=== PATIENT | female | born 1940 | race Caucasian/White ===

== ENCOUNTER 2023-08-21 04:02 | Inpatient (IN) | payer MEDICARE ==
[2023-08-21] MEDS: HYDROcodone/APAP 7.5-325MG 1 EACH TAB PO ONE (05:20)
[2023-08-21 05:22] LABS: African American GFR (CKD) 52 (>60 ml/min/1.73 sqM); Anion Gap 8 mmol/L; Blood Urea Nitrogen 36 mg/dL (7-17); Calcium 9.9 mg/dL (8.4-10.2); Carbon Dioxide 20 mmol/L (22-30); Chloride 109 mmol/L (98-107); Glucose 169 mg/dL (74-99); Non-African American GFR(CKD) 45 (>60 ml/min/1.73 sqM); Sodium 137 mmol/L (137-145)
[2023-08-21 05:23] LABS: Basophils % (A) 0 %; Eosinophils # (A) 0.3 k/uL (0-0.7); Eosinophils % (A) 2 %; HCT 44.4 % (34.0-46.0); HGB 14.8 gm/dL (11.4-16.0); Lymphocytes # (A) 1.6 k/uL (1.0-4.8); Lymphocytes % (A) 11 %; MCH 32.7 pg (25.0-35.0); MCHC 33.4 g/dL (31.0-37.0); MCV 98.1 fL (80.0-100.0); Mean Platelet Volume 10.1; Monocytes # (A) 0.7 k/uL (0-1.0); Monocytes % (A) 5 %; Neutrophils # (A) 11.4 k/uL (1.3-7.7); Neutrophils % (A) 81 %; Platelet Count 226 k/uL (150-450); RBC 4.53 m/uL (3.80-5.40); RDW 13.1 % (11.5-15.5); WBC 14.1 k/uL (3.8-10.6)
[2023-08-21 06:01] LABS: Partial Thromboplastin Time 23.9 sec (22.0-30.0); Prothrombin Time 11.1 sec (10.0-12.5)
--- NOTE | 2023-08-21 06:38 | XR ---
EXAM: XR Left Tibia and Fibula, 2 Views CLINICAL HISTORY: ITS.REASON XR Reason: leg injury c/o left leg pain after hitting leg on unknown object - possibly while getting into car. Injury occurred around 01:00 this morning.Swelling and bruising on left lateral side of leg TECHNIQUE: Frontal and lateral views of the left tibia and fibula. COMPARISON: No relevant prior studies available. FINDINGS: Bones/joints: No acute fracture. No dislocation. Degenerative changes at the knee. Soft tissues: Approximately 12 x 4 cm ovoid opacity in the left lateral lower leg, calf level. IMPRESSION: 1. No evidence of acute fracture or dislocation. 2. Approximately 12 x 4 cm ovoid opacity in the left lateral lower leg, calf level. Possible hematoma.
[2023-08-21] MEDS ORDERED: ONDANSETRON 4 MG/2 ML VIAL IVP PRN (08:03)
[2023-08-21] MEDS ORDERED: NALOXONE 0.4 MG/ML 1 ML VIAL IV PRN (08:03)
[2023-08-21] MEDS: HYDROmorphone 0.5 MG/0.5 ML SYRINGE IVP PRN (08:17)
[2023-08-21] MEDS: SODIUM CHLORIDE 0.9% 1,000 ML IV SCH (08:25)
--- NOTE | 2023-08-21 08:31 | ED ---
Lower Extremity Injury HPI - General Chief Complaint: Extremity Injury, Lower Stated Complaint: left leg pain Time Seen by Provider: 08/21/23 04:32 Source: patient Mode of arrival: wheelchair Limitations: no limitations - History of Present Illness Initial Comments: This patient is an 83-year-old woman who is on Xarelto for atrial fibrillation and states that she had struck her left leg against car while she was getting into it. She states that this was in [place] where she lives. She proceeded to come to [facility] where her son lives. I when she got here she noticed she was having significant pain and when she checked her leg found there was large area of swelling in the lateral aspect of the pretibial area. The patient states that the pain is worse when she tries to bear weight or if she touches the swelling. She has intact sensation to the foot. She is able to move her toes. She denies any other injury. Complaint: leg injury -: hour(s) Injury: Leg: Left Type of Injury: blunt Place: street/outdoors Severity: moderate Improves With: immobilization Worsens With: weight bearing, movement, palpation Context: direct blow Associated Symptoms: swelling, able to partially bear weight - Related Data Home Medications Medication Instructions Recorded Confirmed Apixaban [Eliquis] 5 mg PO BID 08/21/23 08/21/23 Clotrimazole/Betameth Cream 1 applic TOPICAL BID PRN 08/21/23 08/21/23 [Lotrisone] Levothyroxine Sodium [Levoxyl] 100 mcg PO HS 08/21/23 08/21/23 Metoprolol Tartrate [Lopressor] 100 mg PO BID 08/21/23 08/21/23 Pravastatin Sodium [Pravachol] 40 mg PO HS 08/21/23 08/21/23 Spironolactone 25 mg PO DAILY PRN 08/21/23 08/21/23 dilTIAZem HCL [dilTIAZem HCL 24Hr 120 mg PO DAILY 08/21/23 08/21/23 ER (Xr)] lisinopriL [Zestril] 20 mg PO BID 08/21/23 08/21/23 Previous Rx's Medication Instructions Recorded Acetaminophen Tab [Tylenol] 650 mg PO Q6HR PRN tab 08/31/23 Docusate [Colace] 100 mg PO DAILY PRN cap 08/31/23 Famotidine [Pepcid] 20 mg PO DAILY tab 08/31/23 HYDROcodone/APAP 7.5-325MG [[place] 1 each PO Q4H PRN #10 tab 08/31/23 7.5-325] traMADol HCL 50 mg PO DAILY PRN #3 tab 08/31/23 Allergies Allergy/AdvReac Type Severity Reaction Status Date / Time amoxicillin Allergy Itching Verified 08/23/23 10:20 morphine Allergy Itching Verified 08/23/23 10:20 Review of Systems ROS Statement: Those systems with pertinent positive or pertinent negative responses have been documented in the HPI. ROS Other: All systems not noted in ROS Statement are negative. Constitutional: Denies: fever, chills, weakness Respiratory: Denies: cough, dyspnea Cardiovascular: Denies: chest pain, palpitations, edema Gastrointestinal: Denies: abdominal pain, vomiting, diarrhea Genitourinary: Denies: dysuria, hematuria Musculoskeletal: Denies: back pain Skin: Denies: rash Neurological: Reports: as per HPI, paresthesias. Denies: headache, weakness, numbness Hematological/Lymphatic: Reports: easy bleeding Past Medical History Past Medical History: Atrial Fibrillation, Hyperlipidemia, Hypertension, Thyroid Disorder History of Any Multi-Drug Resistant Organisms: None Reported Past Surgical History: Cholecystectomy, Joint Replacement Past Psychological History: No Psychological Hx Reported Smoking Status: Never smoker Past Alcohol Use History: None Reported Past Drug Use History: None Reported General Exam Limitations: no limitations General appearance: alert, in no apparent distress Head exam: Present: atraumatic, normocephalic Eye exam: Present: normal appearance. Absent: scleral icterus, conjunctival injection Neck exam: Present: normal inspection Respiratory exam: Present: normal lung sounds bilaterally. Absent: respiratory distress, wheezes, rales, rhonchi, stridor Cardiovascular Exam: Present: regular rate, normal rhythm, normal heart sounds. Absent: systolic murmur, diastolic murmur, rubs, gallop GI/Abdominal exam: Present: soft. Absent: distended, tenderness, guarding, rebound, rigid, mass Extremities exam: Present: full ROM, tenderness, normal capillary refill, calf tenderness, other (And has approximately 12 cm diameter area of hematoma lateral aspect of the left lower leg. There is marked tenderness. The patient does have movement of the toes. She has intact light touch.) Neurological exam: Present: alert. Absent: motor sensory deficit Skin exam: Present: warm, dry, intact, other (Mild chronic stasis changes bilateral lower legs) Course Vital Signs 08/21/23 08/21/23 08/21/23 04:03 07:08 09:12 Temperature 97.6 F 97.6 F Pulse Rate 89 112 H 79 Respiratory 18 20 18 Rate Blood Pressure 137/62 151/104 122/70 O2 Sat by Pulse 97 90 L 99 Oximetry 08/21/23 12:56 Temperature 98.0 F Pulse Rate 80 Respiratory 18 Rate Blood Pressure 155/77 O2 Sat by Pulse 96 Oximetry Medical Decision Making - Medical Decision Making Patient is an 83-year-old woman taking Xarelto who had blunt injury to the lateral aspect of left lower leg. She does have large hematoma. It has progressed somewhat since her arrival here. The patient not able to bear weight due to pain. We'll admit to have orthopedic consultation to ensure that the hematoma does not need to be drained to prevent developing compartment syndrome. The patient had x-ray of the left tib-fib area of the leg which I interpreted as negative for acute bony injury. Was pt. sent in by a medical professional or institution (, PA, [employer], urgent care, hospital, or penitentiary...) When possible be specific @ -[No] Did you speak to anyone other than the patient for history (EMS, parent, family, police, friend...)? What history was obtained from this source @ -[No] Did you review nursing and triage notes (agree or disagree)? Why? @ -[I reviewed and agree with nursing and triage notes] Were old charts reviewed (outside hosp., previous admission, EMS record, old EKG, old radiological studies, urgent care reports/EKG's, penitentiary records)? Report findings @ -[No old charts were reviewed] Differential Diagnosis (chest pain, altered mental status, abdominal pain women, abdominal pain men, vaginal bleeding, weakness, fever, dyspnea, syncope, headache, dizziness, GI bleed, back pain, seizure, CVA, palpatations, mental h ealth, musculoskeletal)? @ -[Differential Musculoskeletal Muscular strain, contusion, ligament sprain, fracture, arthritis, septic arthritis, bursitis, cellulitis, muscle spasm, nerve compression, DVT, arterial occlusion, herpes zoster, electrolyte abnormality, tumor.... This is not meant to be in all inclusive list EKG interpreted by me (3pts min.). @ -[As above] X-rays interpreted by me (1pt min.). @ -[I interpreted as above CT interpreted by me (1pt min.). @ -[None done] U/S interpreted by me (1pt. min.). @ -[None done] What testing was considered but not performed or refused? (CT, X-rays, U/S, labs)? Why? @ -[None] What meds were considered but not given or refused? Why? @ -[None] Did you discuss the management of the patient with other professionals (professionals i.e. , PA, [employer], lab, RT, psych nurse, social media assistant, oilseed meat presser, teacher, seismology technical officer, pillowcase folder)? Give summary @ -[The case was discussed with admitting physician and with the pre owned sales consultant and treatment recommendations are incorporated Was smoking cessation discussed for >3mins.? @ -[No] Was critical care preformed (if so, how long)? @ -[No] Were there social determinants of health that impacted care today? How? (Homelessness, low income, unemployed, alcoholism, drug addiction, transportation, low edu. Level, literacy, decrease access to med. care, fpc, rehab)? @ -[No] Was there de-escalation of care discussed even if they declined (Discuss DNR or withdrawal of care, Hospice)? DNR status @ -[No] What co-morbidities impacted this encounter? (DM, HTN, Smoking, COPD, CAD, Cancer, CVA, ARF, Chemo, Hep., AIDS, mental health diagnosis, sleep apnea, morbid obesity)? @ -[Atrial fibrillation with Xarelto use Was patient admitted / discharged? Hospital course, mention meds given and route, prescriptions, significant lab abnormalities, going to OR and other pertinent info. @ -[See above Undiagnosed new problem with uncertain prognosis? @ -[No] Drug Therapy requiring intensive monitoring for toxicity (Heparin, Nitro, Insulin, Cardizem)? @ -[No] Were any procedures done? @ -[No] Diagnosis/symptom? @ -[Left leg hematoma Possible compartment syndrome Acute, or Chronic, or Acute on Chronic? @ -[Acute Uncomplicated (without systemic symptoms) or Complicated (systemic symptoms)? @ -[Uncomplicated Side effects of treatment? @ -[No] Exacerbation, Progression, or Severe Exacerbation? @ -[No] Poses a threat to life or bodily function? How? (Chest pain, [place], [place], pneumonia, PE, COPD, DKA, ARF, appy, cholecystitis, CVA, Diverticulitis, Homicidal, Suicidal, threat to staff... and all critical care pts) @ -[Hematoma which advances to compartment syndrome represents threat to extremity function - Lab Data Result diagrams: 08/26/23 05:45 08/26/23 05:45 Lab Results 08/21/23 08/21/23 08/21/23 Range/Units 05:04 05:04 05:04 WBC 14.1 H (3.8-10.6) k/uL RBC 4.53 (3.80-5.40) m/uL Hgb 14.8 (11.4-16.0) gm/dL Hct 44.4 (34.0-46.0) % MCV 98.1 (80.0-100.0) fL MCH 32.7 (25.0-35.0) pg MCHC 33.4 (31.0-37.0) g/dL RDW 13.1 (11.5-15.5) % Plt Count 226 (150-450) k/uL MPV 10.1 Neutrophils % 81 % Lymphocytes % 11 % Monocytes % 5 % Eosinophils % 2 % Basophils % 0 % Neutrophils # 11.4 H (1.3-7.7) k/uL Lymphocytes # 1.6 (1.0-4.8) k/uL Monocytes # 0.7 (0-1.0) k/uL Eosinophils # 0.3 (0-0.7) k/uL Basophils # 0.0 (0-0.2) k/uL PT 11.1 (10.0-12.5) sec INR 1.0 (<1.2) APTT 23.9 (22.0-30.0) sec Sodium 137 (137-145) mmol/L Potassium 5.0 (3.5-5.1) mmol/L Chloride 109 H (98-107) mmol/L Carbon Dioxide 20 L (22-30) mmol/L Anion Gap 8 mmol/L BUN 36 H (7-17) mg/dL Creatinine 1.14 H (0.52-1.04) mg/dL Est GFR (CKD-EPI)AfAm 52 (>60 ml/min/1.73 sqM) Est GFR (CKD-EPI)NonAf 45 (>60 ml/min/1.73 sqM) Glucose 169 H (74-99) mg/dL Plasma Lactic Acid Stone (0.7-2.0) mmol/L Calcium 9.9 (8.4-10.2) mg/dL Magnesium (1.6-2.3) mg/dL Total Bilirubin (0.2-1.3) mg/dL AST (14-36) U/L ALT (4-34) U/L Alkaline Phosphatase (38-126) U/L Total Protein (6.3-8.2) g/dL Albumin (3.5-5.0) g/dL 08/21/23 08/22/23 08/22/23 Range/Units 05:04 07:13 07:13 WBC 11.1 H (3.8-10.6) k/uL RBC 3.42 L (3.80-5.40) m/uL Hgb 11.2 L D (11.4-16.0) gm/dL Hct 34.1 (34.0-46.0) % MCV 99.7 (80.0-100.0) fL MCH 32.8 (25.0-35.0) pg MCHC 32.9 (31.0-37.0) g/dL RDW 13.0 (11.5-15.5) % Plt Count 163 (150-450) k/uL MPV 9.3 Neutrophils % % Lymphocytes % % Monocytes % % Eosinophils % % Basophils % % Neutrophils # (1.3-7.7) k/uL Lymphocytes # (1.0-4.8) k/uL Monocytes # (0-1.0) k/uL Eosinophils # (0-0.7) k/uL Basophils # (0-0.2) k/uL PT (10.0-12.5) sec INR (<1.2) APTT (22.0-30.0) sec Sodium 136 L (137-145) mmol/L Potassium 4.4 (3.5-5.1) mmol/L Chloride 105 (98-107) mmol/L Carbon Dioxide 24 (22-30) mmol/L Anion Gap 7 mmol/L BUN 33 H (7-17) mg/dL Creatinine 1.03 (0.52-1.04) mg/dL Est GFR (CKD-EPI)AfAm 59 (>60 ml/min/1.73 sqM) Est GFR (CKD-EPI)NonAf 51 (>60 ml/min/1.73 sqM) Glucose 131 H (74-99) mg/dL Plasma Lactic Acid Stone 1.5 (0.7-2.0) mmol/L Calcium 9.0 (8.4-10.2) mg/dL Magnesium 1.5 L (1.6-2.3) mg/dL Total Bilirubin 1.1 (0.2-1.3) mg/dL AST 85 H (14-36) U/L ALT 91 H (4-34) U/L Alkaline Phosphatase 182 H (38-126) U/L Total Protein 5.3 L (6.3-8.2) g/dL Albumin 3.1 L (3.5-5.0) g/dL Disposition Clinical Impression: Hematoma of left lower leg, Intractable pain, Inability to walk Disposition: ADMITTED IP TO THIS [facility] Condition: Stable
[2023-08-21] MEDS: HYDROmorphone 1 MG/ML 1 ML SYRINGE IVP PRN (10:25)
[2023-08-21] MEDS: FAMOTIDINE 20 MG TAB PO SCH (10:25)
[2023-08-21] MEDS ORDERED: SPIRONOLACTONE 25 MG TAB PO PRN (13:26)
--- NOTE | 2023-08-21 13:27 | P.HPIM ---
History of Present Illness H&P Date: 08/21/23 History of Presenting Illness: Patient is a pleasant 83-year-old female with a past medical history of chronic atrial fibrillation on anticoagulation with Eliquis, hypertension, hyperlipidemia, and hypothyroidism. She presented to the emergency department with left lower extremity pain and swelling. Patient lives in [place] and is here in [place] for her son's . She reports upon getting into her [id number]'s car after her son's yesterday she bumped her leg on the door. Initially, patient reports it was sore but did not think much of it. She reports throughout the day and night the swelling and pain to her left lower extremity worsened. She denies any other pain or injuries and denies any other complaints at this time including headache, lightheadedness, dizziness, chest pain, palpitations, shortness of breath, or experiencing any numbness or focal weakness in her extremities. Patient does report difficulty bearing weight weight/ambulating on left lower extremity secondary to pain. She underwent full evaluation in the emergency department. Vital signs upon arrival show blood pressure 137/62, heart rate 89, respiratory rate 18, temp 97.6 F, and SpO2 of 97% on room air. Labs completed and reviewed. CBC showing mild leukocytosis with WBC count of 14.1 otherwise normal findings. Coagulation profile normal findings. BMP showing mild non-anion gap metabolic acidosis with chloride 109, bicarb 20, and anion gap of 8. Renal function slightly elevated with BUN of 36, creatinine 1.14, and GFR 45 unknown baseline as patient is from out of state and no previous labs are available for comparison. Lactic acid was 1.5. X-ray completed negative for acute fracture or dislocation revealing an approximately 12 x 4 cm ovoid opacity in the left lateral lower leg consistent with hematoma. Patient admitted under our services with consultation to orthopedic surgery team for evaluation. Review of systems: Pertinent positives and negatives as discussed in HPI, a complete review of systems was performed and all other systems are negative. Physical exam: Vital signs reviewed and stable. General: Nontoxic, no distress and appears stated age. Derm: Skin warm and dry, normal coloration for ethnicity. Head: Atraumatic, normocephalic and symmetric. Eyes: EOMs intact, no lid lag, and anicteric sclera Mouth: no lip lesions, mucus membranes moist Cardiovascular: Irregularly irregular with normal S1S2, no murmur, positive posterior tibial pulses bilaterally, and cap refill < 2 seconds. Lungs: Respirations even, regular, and unlabored on room air. Lungs CTA bilaterally, no rhonchi, no rales, no wheezing, and no accessory muscle usage. Abdominal: soft, nontender to palpation, no guarding, no appreciable organomegaly Ext: No gross muscle atrophy, no contractures. Movement and sensation intact. Patient with bilateral lower extremity edema and peripheral vascular discolor ation. Left lower extremity with large hematoma to lateral surface of lower leg approximately 12 cm in length with small opening/tear and skin with seepage of dark-colored venous blood. Neuro: Speech clear, face symmetrical and CN II-XII grossly intact with no noted focal neuro deficits Psych: Alert and oriented to person, place, time, and situation. Appropriate and pleasant affect. Assessment and Plan of Care: Large left lower extremity hematoma -Order placed for Tdap -Patient placed empirically on IV antibiotics with cefepime 2 g IVPB every 8 hours. -Consult placed orthopedic surgery team -Hold Eliquis pending evaluation by orthopedic surgery team. -Symptomatic care and pain management with Tylenol 650 mg every 6 hours as needed for mild pain, tramadol 50 mg as needed for moderate pain, and Dilaudid 0.5 mg IVP every 3 hours as needed for severe pain.. -Order placed for elevation of left lower extremity and neurovascular checks every 4 hours. -PT/OT consulted. Fall precautions in place. Chronic atrial fibrillation Hypertension Hyperlipidemia -Hold Eliquis pending clearance from orthopedic surgery team to resume. Patient to continue daily medication regimen with Cardizem 120 mg daily, lisinopril 20 mg twice daily, metoprolol 100 mg twice daily, pravastatin 40 mg nightly, and Aldactone 25 mg daily. Hypothyroidism -Continue daily medication regimen with levothyroxine 100 mcg daily. Data and imaging reviewed: As stated above in HPI. The patient is admitted with an anticipated greater than 2 midnight stay for evaluation of large hematoma left lower leg, on anticoagulation CODE STATUS: Full code DVT prophylaxis: SCDs pending clearance from orthopedic surgery team to resume Eliquis Anticipated discharge date: Clinical course to determine Anticipated discharge place: Clinical course to determine Patient was seen independently by Nurse Practitioner. This document was prepared using [employer] dictation software. Please allow for errors in cow tester while rare they do occur. Phoenix Hartmann NP rendered care for this patient independently, reviewed the findings and plan as documented in the note above. I did not physically speak with or examine the patient on this date. Past Medical History Past Medical History: Atrial Fibrillation, Hyperlipidemia, Hypertension, Thyroid Disorder History of Any Multi-Drug Resistant Organisms: None Reported Past Surgical History: Cholecystectomy, Joint Replacement Past Psychological History: No Psychological Hx Reported Smoking Status: Never smoker Past Alcohol Use History: None Reported Past Drug Use History: None Reported Medications and Allergies Home Medications Medication Instructions Recorded Confirmed Type Apixaban [Eliquis] 5 mg PO BID 08/21/23 08/21/23 History Clotrimazole/Betameth Cream 1 applic TOPICAL BID PRN 08/21/23 08/21/23 History [Lotrisone] Levothyroxine Sodium [Levoxyl] 100 mcg PO HS 08/21/23 08/21/23 History Metoprolol Tartrate [Lopressor] 100 mg PO BID 08/21/23 08/21/23 History Pravastatin Sodium [Pravachol] 40 mg PO HS 08/21/23 08/21/23 History Spironolactone 25 mg PO DAILY PRN 08/21/23 08/21/23 History dilTIAZem HCL [dilTIAZem HCL 24Hr 120 mg PO DAILY 08/21/23 08/21/23 History ER (Xr)] lisinopriL [Zestril] 20 mg PO BID 08/21/23 08/21/23 History traMADol HCL 50 mg PO DAILY PRN 08/21/23 08/21/23 History Allergies Allergy/AdvReac Type Severity Reaction Status Date / Time amoxicillin Allergy Itching Verified 08/23/23 10:20 morphine Allergy Itching Verified 08/23/23 10:20 Physical Exam Vitals: Vital Signs Temp Pulse Resp BP Pulse Ox 08/21/23 07:08 112 H 20 151/104 90 L 08/21/23 04:03 97.6 F 89 18 137/62 97 Intake and Output 08/20/23 08/21/23 08/21/23 22:59 06:59 14:59 Other: Weight 117.934 kg Results CBC & Chem 7: 08/26/23 05:45 08/26/23 05:45 Labs: Abnormal Lab Results - Last 24 Hours (Table) 08/21/23 08/21/23 Range/Units 05:04 05:04 WBC 14.1 H (3.8-10.6) k/uL Neutrophils # 11.4 H (1.3-7.7) k/uL Chloride 109 H (98-107) mmol/L Carbon Dioxide 20 L (22-30) mmol/L BUN 36 H (7-17) mg/dL Creatinine 1.14 H (0.52-1.04) mg/dL Glucose 169 H (74-99) mg/dL
--- NOTE | 2023-08-21 15:35 | P.CNOR ---
History of Present Illness - HPI Consult date: 08/21/23 History of present illness: Patient is pleasant 83 yo female seen at bedside in the ED this afternoon. She states that she thinks she hit or cut her lower left leg on something yesterday, 08/20/23. She developed swelling and mild bleeding that had progressed with pain. She is on Eloquis for afib. She also states that she has had chronic bilateral lower extremity cellulitis and edema that she is seen by a provider in [place] where she lives. She is here visiting. She is currently denying numbness, tingling or weakness in the left foot or toes. She denies fever, chills, chest pain, SOB or other. Review of Systems All systems: negative Constitutional: Denies chills, Denies fever Eyes: denies blurred vision, denies pain Ears, nose, mouth and throat: Denies headache, Denies sore throat Cardiovascular: Denies chest pain, Denies shortness of breath Respiratory: Denies cough Gastrointestinal: Denies abdominal pain, Denies diarrhea, Denies nausea, Denies vomiting Genitourinary: Denies dysuria, Denies hematuria Musculoskeletal: Denies myalgias Integumentary: Denies pruritus, Denies rash Neurological: Denies numbness, Denies weakness Psychiatric: Denies anxiety, Denies depression Endocrine: Denies fatigue, Denies weight change Past Medical History Past Medical History: Atrial Fibrillation, Hyperlipidemia, Hypertension, Thyroid Disorder History of Any Multi-Drug Resistant Organisms: None Reported Past Surgical History: Cholecystectomy, Joint Replacement Past Psychological History: No Psychological Hx Reported Smoking Status: Never smoker Past Alcohol Use History: None Reported Past Drug Use History: None Reported Medications and Allergies Home Medications Medication Instructions Recorded Confirmed Type Apixaban [Eliquis] 5 mg PO BID 08/21/23 08/21/23 History Clotrimazole/Betameth Cream 1 applic TOPICAL BID PRN 08/21/23 08/21/23 History [Lotrisone] Levothyroxine Sodium [Levoxyl] 100 mcg PO HS 08/21/23 08/21/23 History Metoprolol Tartrate [Lopressor] 100 mg PO BID 08/21/23 08/21/23 History Pravastatin Sodium [Pravachol] 40 mg PO HS 08/21/23 08/21/23 History Spironolactone 25 mg PO DAILY PRN 08/21/23 08/21/23 History dilTIAZem HCL [dilTIAZem HCL 24Hr 120 mg PO DAILY 08/21/23 08/21/23 History ER (Xr)] lisinopriL [Zestril] 20 mg PO BID 08/21/23 08/21/23 History traMADol HCL 50 mg PO DAILY PRN 08/21/23 08/21/23 History Allergies Allergy/AdvReac Type Severity Reaction Status Date / Time amoxicillin Allergy Itching Verified 08/21/23 09:51 morphine Allergy Itching Verified 08/21/23 09:51 Physical Examination Inspection of the left lower extremity shows an kemi and bandage in place at the mid lower extremity. She has chronic appearing cellulitis and edema at both lower extremities. The bandage is removed and shows mild venous type bleeding at the mid left lateral aspect of her lower leg. There is large collection of dark blood just underneath the skin and subcutaneous tissue. Calf is nontender. No purulence is noted. She is able to actively dorsiflex and plantar flex her foot and toes. Sensation to touch is intact throughout the lower extremity, foot and all toes. There is less than 2 sec cap refill in all toes. 1+ DP and PT pulses p resent. Results negative for fracture or gas - Labs Labs: Abnormal Lab Results - Last 24 Hours (Table) 08/21/23 08/21/23 Range/Units 05:04 05:04 WBC 14.1 H (3.8-10.6) k/uL Neutrophils # 11.4 H (1.3-7.7) k/uL Chloride 109 H (98-107) mmol/L Carbon Dioxide 20 L (22-30) mmol/L BUN 36 H (7-17) mg/dL Creatinine 1.14 H (0.52-1.04) mg/dL Glucose 169 H (74-99) mg/dL H & H 08/21/23 Range/Units 05:04 Hgb 14.8 (11.4-16.0) gm/dL Hct 44.4 (34.0-46.0) % Coagulation 08/21/23 Range/Units 05:04 INR 1.0 (<1.2) Result Diagrams: 08/21/23 05:04 08/21/23 05:04 Assessment and Plan (1) Hematoma of left lower leg Narrative/Plan: Patient has been reviewed with Dr. Chris. There are no plans for immediate surgical intervention but will monitor closely. She is NVI and is at increased risk of infection due to her chronic cellulitis and edema as well as being on Eloquis. Recommend mild compressive wrap from toes to the knee along with continued elevation above her heart. Recommend IV antibiotics. Will continue to monitor and make further recommendations pending her clinical course. Thank you. Current Visit: Yes Status: Acute Code(s): S80.12XA - CONTUSION OF LEFT LOWER LEG, INITIAL ENCOUNTER SNOMED Code(s): 50326073018713038 Time with Patient: Less than 30
[2023-08-21] MEDS: CEFEPIME 2 GM in SODIUM CHLORIDE 0.9% 100 ML IVPB SCH (17:04)
[2023-08-21] MEDS: DIPH,PERTUS(ACELL)TETVAC-LF 0.5 ML VIAL IM ONE (17:41)
[2023-08-21] MEDS: traMADol 50 MG TAB PO PRN (19:39)
[2023-08-21] MEDS: lisinopriL 20 MG TAB PO SCH (20:42)
[2023-08-21] MEDS: LEVOTHYROXINE 100 MCG TAB PO SCH (20:42)
[2023-08-21] MEDS: PRAVASTATIN SODIUM 40 MG TAB PO SCH (20:45)
[2023-08-21] MEDS: METOPROLOL TARTRATE 50 MG TAB PO SCH (21:47)
[2023-08-22 07:37] LABS: HCT 34.1 % (34.0-46.0); MCH 32.8 pg (25.0-35.0); MCHC 32.9 g/dL (31.0-37.0); MCV 99.7 fL (80.0-100.0); Mean Platelet Volume 9.3; Platelet Count 163 k/uL (150-450); RBC 3.42 m/uL (3.80-5.40); WBC 11.1 k/uL (3.8-10.6)
[2023-08-22 07:50] LABS: ALT 91 U/L (4-34); AST 85 U/L (14-36); African American GFR (CKD) 59 (>60 ml/min/1.73 sqM); Albumin 3.1 g/dL (3.5-5.0); Alkaline Phosphatase 182 U/L (38-126); Anion Gap 7 mmol/L; Carbon Dioxide 24 mmol/L (22-30); Chloride 105 mmol/L (98-107); Glucose 131 mg/dL (74-99); Magnesium 1.5 mg/dL (1.6-2.3); Non-African American GFR(CKD) 51 (>60 ml/min/1.73 sqM); Potassium 4.4 mmol/L (3.5-5.1); Sodium 136 mmol/L (137-145); Total Bilirubin 1.1 mg/dL (0.2-1.3); Total Protein 5.3 g/dL (6.3-8.2)
[2023-08-22 07:52] LABS: Blood Urea Nitrogen 33 mg/dL (7-17)
[2023-08-22 08:01] LABS: HGB 11.2 gm/dL (11.4-16.0)
[2023-08-22] MEDS: DILTIAZEM CD 120 MG CAP.ER.24H PO SCH (09:33)
[2023-08-22] MEDS: FAMOTIDINE 20 MG TAB PO SCH (09:33)
[2023-08-22] MEDS: MAGNESIUM SULFATE-D5W PMX 1 GM in DEXTROSE/WATER 1 100ML.BAG IVPB SCH (10:40)
[2023-08-22] MEDS ORDERED: RX INFO: IV CONTRAST WAS GIVEN 1 EACH MISC MISCELLANE PRN (11:24)
--- NOTE | 2023-08-22 11:40 | P.PN ---
Subjective Progress Note Date: 08/22/23 Hospital Course: Patient is a pleasant 83-year-old female with a past medical history of chronic atrial fibrillation on anticoagulation with Eliquis, hypertension, hyperlipidemia, and hypothyroidism. She presented to the emergency department with left lower extremity pain and swelling. Patient lives in [place] and is here in [place] for her son's . She reports upon getting into her vhviumvy-wa-nvf's car after her son's yesterday she bumped her leg on the door. Initially, patient reports it was sore but did not think much of it. She reports throughout the day and night the swelling and pain to her left lower extremity worsened. She denies any other pain or injuries and denies any other complaints at this time including headache, lightheadedness, dizziness, chest pain, palpitations, shortness of breath, or experiencing any numbness or focal weakness in her extremities. Patient does report difficulty bearing weight weight/ambulating on left lower extremity secondary to pain. She underwent full evaluation in the emergency department. Vital signs upon arrival show blood pressure 137/62, heart rate 89, respiratory rate 18, temp 97.6 F, and SpO2 of 97% on room air. Labs completed and reviewed. CBC showing mild leukocytosis with WBC count of 14.1 otherwise normal findings. Coagulation profile normal findings. BMP showing mild non-anion gap metabolic acidosis with chloride 109, bicarb 20, and anion gap of 8. Renal function slightly elevated with BUN of 36, creatinine 1.14, and GFR 45 unknown baseline as patient is from out of state and no previous labs are available for comparison. Lactic acid was 1.5. X-ray completed negative for acute fracture or dislocation revealing an approximately 12 x 4 cm ovoid opacity in the left lateral lower leg consistent with hematoma. Patient admitted under our services with consultation to orthopedic surgery team for evaluation. Patient reports receiving Tdap vaccination in 2022. Physical exam: Patient seen and fully evaluated at bedside this morning. She was able to ambulate with walker and two-person assist to restroom, but became very dizzy/lightheaded needing to sit down as she reported feeling as though she was going to pass out. Patient was brought some ice water and a wheelchair was brought in to restroom to safely assist patient back into bed safely. Vital signs were stable with blood pressure 134/72 and heart rate slightly elevated at 105 this morning. Patient did have a 3.6 g drop in hemoglobin and the hematoma to her left lateral lower extremity appears larger upon visual examination. Discussed with orthopedic PA, will obtain a CTA left lower extremity. Vital signs reviewed and stable. General: Nontoxic, no distress and appears stated age. Derm: Skin warm and dry, normal coloration for ethnicity. Head: Atraumatic, normocephalic and symmetric. Eyes: EOMs intact, no lid lag, and anicteric sclera Mouth: no lip lesions, mucus membranes moist Cardiovascular: Irregularly irregular with normal S1S2, no murmur, positive posterior tibial pulses bilaterally, and cap refill < 2 seconds. Lungs: Respirations even, regular, and unlabored on room air. Lungs CTA bilaterally, no rhonchi, no rales, no wheezing, and no accessory muscle usage. Abdominal: soft, nontender to palpation, no guarding, no appreciable organomegaly Ext: No gross muscle atrophy, no contractures. Movement and sensation remains intact. Dorsiflexion and plantarflexion remains intact. Patient with bilateral lower extremity edema and peripheral vascular dermatitis. Left lower extremity with large hematoma to lateral surface of lower leg which appears slightly larger today. No active bleeding noted at this time. Dressing intact. Neuro: Speech clear, face symmetrical and CN II-XII grossly intact with no noted focal neuro deficits Psych: Alert and oriented to person, place, time, and situation. Appropriate and pleasant affect. Assessment and Plan of Care: Large left lower extremity hematoma Symptomatic acute blood loss anemia, with episode of dizziness/lightheadedness upon standing. -Patient with a 3.6 g drop in hemoglobin this morning. Decreasing from 14.8 d own to 11.2. She also had episode of dizziness/lightheadedness while ambulating which is new to her. She is tachycardic, but hemodynamically stable with blood pressure of 134/72. -Order placed for CTA left lower extremity to rule out active bleeding and further evaluate hematoma. -Continue empiric IV antibiotics with cefepime 2 g IVPB every 12 hours. -Consult placed orthopedic surgery team, discussed plan of care with orthopedic surgery PA. -Continue to hold Eliquis pending clearance by orthopedic surgery team to resume. -Symptomatic care and pain management with Tylenol 650 mg every 6 hours as needed for mild pain, tramadol 50 mg as needed for moderate pain, and Dilaudid 0.5 mg IVP every 3 hours as needed for severe pain.. -Continue elevation of left lower extremity with neurovascular checks every 4 hours. -PT/OT consulted. Fall precautions in place. Transaminitis -Unclear if chronic, no previous labs available for comparison. We will amando tor. Hypomagnesemia -Magnesium 1.5. Orders placed for magnesium sulfate 2 g IVPB x 1 dose. Will monitor for resolution. Chronic atrial fibrillation Hypertension Hyperlipidemia -Hold Eliquis pending clearance from orthopedic surgery team to resume. Patient to continue daily medication regimen with Cardizem 120 mg daily, lisinopril 20 mg twice daily, metoprolol 100 mg twice daily, pravastatin 40 mg nightly, and Aldactone 25 mg daily. Hypothyroidism -Continue daily medication regimen with levothyroxine 100 mcg daily. Data and imaging reviewed: Morning labs reviewed. CBC showing mild leukocytosis with WBC count of 11.1 a nd acute blood loss anemia with hemoglobin of 11.2 (a 3.6 g drop of hemoglobin since admission). BMP showing persistent prerenal azotemia with BUN of 33, creatinine 1.03, and GFR 51. Blood glucose was 131 this morning. Magnesium low at 1.5. Liver profile showing transaminitis with AST of 85, ALT of 91, and alkaline phosphatase of 182. Vital signs reviewed. Blood pressure 134/72, heart rate 105, respiratory rate 18, temp 97.7 F, and SpO2 of 95% on room air. CODE STATUS: Full code DVT prophylaxis: SCDs pending clearance from orthopedic surgery team to resume Eliquis Anticipated discharge date: Clinical course to determine Anticipated discharge place: Clinical course to determine Patient was seen independently by Nurse Practitioner. This document was prepared using [employer] dictation software. Please allow for errors in photographer's assistant while rare they do occur. Objective - Vital Signs Vital signs: Vital Signs Temp 97.7 F 08/22/23 07:00 Pulse 105 H 08/22/23 07:00 Resp 18 08/22/23 07:00 BP 134/72 08/22/23 07:00 Pulse Ox 95 08/22/23 07:00 FiO2 Intake & Output 08/21/23 08/22/23 08/22/23 18:59 06:59 18:59 Intake Total 540 60 Balance 540 60 Weight 117.934 kg Intake: Oral 540 60 Other: # Voids 1 1 - Labs CBC & Chem 7: 08/22/23 07:13 08/22/23 07:13 Labs: Abnormal Lab Results - Last 24 Hours (Table) 08/22/23 08/22/23 Range/Units 07:13 07:13 WBC 11.1 H (3.8-10.6) k/uL RBC 3.42 L (3.80-5.40) m/uL Hgb 11.2 L D (11.4-16.0) gm/dL Sodium 136 L (137-145) mmol/L BUN 33 H (7-17) mg/dL Glucose 131 H (74-99) mg/dL Magnesium 1.5 L (1.6-2.3) mg/dL AST 85 H (14-36) U/L ALT 91 H (4-34) U/L Alkaline Phosphatase 182 H (38-126) U/L Total Protein 5.3 L (6.3-8.2) g/dL Albumin 3.1 L (3.5-5.0) g/dL
[2023-08-22] MEDS: ACETAMINOPHEN TAB 325 MG TAB PO PRN (13:00)
--- NOTE | 2023-08-22 13:07 | CT ---
CT angiography left lower extremity. DATE: 08/22/2023. COMPARISON: None available. CLINICAL HISTORY: Left lower leg pain and hematoma. TECHNIQUE: Axial images of the left lower extremity were obtained following the administration of 80 mL of Isovue-300 intravenously. Coronal, sagittal and maximum intensity projection reformats were als o performed. CT dose lowering techniques were also used. FINDINGS: There is colonic diverticulosis within the sigmoid colon lungs visualized portions. There is a calcif ied fibroid within the posterior aspect of the uterus. No free fluid is seen within the pelvic region . The external iliac, common femoral, superficial femoral, deep femoral, popliteal, anterior tibial, po sterior tibial and peroneal arteries appear unremarkable along their course. There is some venous con tamination below the knee, however no definitive occlusions are seen. There is a large subcutaneous soft tissue density along the lateral aspect of the lower leg just belo w the knee extending to just above the ankle it measures approximately 23 cm in craniocaudal dimensio n, 1.5 cm in AP dimension and up to approximately 4 cm in thickness. There is no definitive active ex travasation of contrast as this does appear fairly superficial. There is a moderate knee joint effusion. There is moderate to significant osteoarthritis of the media l compartment and [id number] on the lateral compartment of knee. Ymhu-ny-umddizii osteophytic c hanges are also seen within the patellofemoral compartment. No acute fractures are seen. IMPRESSION: 1. Large hematoma along the lateral aspect of the leg described above. There does not appear to be de finitive active bleeding at this time. 2. Degenerative changes and effusion within the knee. There are no acute osseous abnormalities. 3. Diverticulosis without evidence of diverticulitis.
[2023-08-22 17:03] LABS: HCT 33.2 % (34.0-46.0); HGB 11.1 gm/dL (11.4-16.0); MCH 33.1 pg (25.0-35.0); MCHC 33.3 g/dL (31.0-37.0); MCV 99.5 fL (80.0-100.0); Mean Platelet Volume 9.4; Platelet Count 145 k/uL (150-450); RBC 3.34 m/uL (3.80-5.40); WBC 13.7 k/uL (3.8-10.6)
--- NOTE | 2023-08-22 18:36 | P.PN ---
Subjective Progress Note Date: 08/22/23 Principal diagnosis: Hematoma left leg Patient is seen at bedside today regarding her hematoma at her left lower leg. She has pain at the left leg as expected but denies any new complaints. She denies numbness, weakness, icreased, pain, fever, chills, chest pain, shortness of breath or other. Objective - Vital Signs Vital signs: Vital Signs Temp 97.7 F 08/22/23 07:00 Pulse 105 H 08/22/23 07:00 Resp 18 08/22/23 07:00 BP 134/72 08/22/23 07:00 Pulse Ox 95 08/22/23 07:00 FiO2 Intake & Output 08/21/23 08/22/23 08/22/23 18:59 06:59 18:59 Intake Total 540 60 240 Balance 540 60 240 Weight 117.934 kg Intake: Oral 540 60 240 Other: # Voids 1 1 - Exam Inspection of the left lower leg shows large hematoma at the left lateral lower leg. There is no activide bleeding or purulence. Calf is non tender. She has chronic appearing cellulitis and edema at bilateral lower extremities. She is NVI with motor and sensation throughout bilateral lower extremities. Less than 2 sec cap refill is present and 1+ DP and PT pulses are present - Constitutional General appearance: Present: no acute distress - Labs CBC & Chem 7: 08/22/23 16:35 08/22/23 07:13 Labs: Abnormal Lab Results - Last 24 Hours (Table) 08/22/23 08/22/23 Range/Units 07:13 07:13 WBC 11.1 H (3.8-10.6) k/uL RBC 3.42 L (3.80-5.40) m/uL Hgb 11.2 L D (11.4-16.0) gm/dL Sodium 136 L (137-145) mmol/L BUN 33 H (7-17) mg/dL Glucose 131 H (74-99) mg/dL Magnesium 1.5 L (1.6-2.3) mg/dL AST 85 H (14-36) U/L ALT 91 H (4-34) U/L Alkaline Phosphatase 182 H (38-126) U/L Total Protein 5.3 L (6.3-8.2) g/dL Albumin 3.1 L (3.5-5.0) g/dL Assessment and Plan (1) Hematoma of left lower leg Narrative/Plan: Patient has been reviewed with Dr. Chris. CTA shows a 23 cm x 4 cm hematoma. Plan is to proceed with I and D of the hematoma tomorrow 08/23/23. SHe is NPO after MN and procedure/consent has been ordered. Continue with medical management and pain management. Further recommendations to follow post op Current Visit: Yes Status: Acute Code(s): S80.12XA - CONTUSION OF LEFT LOWER LEG, INITIAL ENCOUNTER SNOMED Code(s): [id number] Time with Patient: Less than 30
[2023-08-22] MEDS: HYDROcodone/APAP 7.5-325MG 1 EACH TAB PO PRN (21:20)
[2023-08-23 07:23] LABS: HCT 30.6 % (34.0-46.0); HGB 10.2 gm/dL (11.4-16.0); MCH 32.9 pg (25.0-35.0); MCHC 33.2 g/dL (31.0-37.0); MCV 99.2 fL (80.0-100.0); Mean Platelet Volume 9.3; Platelet Count 135 k/uL (150-450); RBC 3.09 m/uL (3.80-5.40); RDW 13.4 % (11.5-15.5); WBC 10.2 k/uL (3.8-10.6)
[2023-08-23 07:47] LABS: ALT 75 U/L (4-34); AST 65 U/L (14-36); African American GFR (CKD) 62 (>60 ml/min/1.73 sqM); Albumin 2.8 g/dL (3.5-5.0); Alkaline Phosphatase 207 U/L (38-126); Anion Gap 2 mmol/L; Blood Urea Nitrogen 25 mg/dL (7-17); Calcium 9.1 mg/dL (8.4-10.2); Carbon Dioxide 26 mmol/L (22-30); Chloride 106 mmol/L (98-107); Glucose 126 mg/dL (74-99); Magnesium 1.9 mg/dL (1.6-2.3); Non-African American GFR(CKD) 54 (>60 ml/min/1.73 sqM); Potassium 4.5 mmol/L (3.5-5.1); Sodium 134 mmol/L (137-145); Total Bilirubin 1.1 mg/dL (0.2-1.3); Total Protein 5.2 g/dL (6.3-8.2)
[2023-08-23] MEDS: SODIUM CHLORIDE 0.9% 1,000 ML IV ONE (10:28)
[2023-08-23] MEDS: ONDANSETRON 4 MG/2 ML VIAL IVP ONE (10:30)
[2023-08-23] MEDS: DEXAMETHASONE SOD PHOSPHATE 4 MG/ML 1 ML VIAL IVP ONE (10:50)
[2023-08-23] MEDS: FAMOTIDINE 20 MG/2 ML VIAL IVP ONE (10:50)
[2023-08-23] MEDS ORDERED: LIDOCAINE 1% INJ 10MG/ML (20 ML MDV) ONE (11:31)
[2023-08-23] MEDS ORDERED: SUCCINYLCHOLINE CHLORIDE 200 MG/10 ML VIAL IV ONE (11:31)
[2023-08-23] MEDS ORDERED: fentaNYL (PF) 50 MCG/ML 2 ML AMP ONE (11:31)
[2023-08-23] MEDS ORDERED: PROPOFOL 10 MG/ML 20 ML VIAL IV ONE (11:31)
[2023-08-23] MEDS: ceFAZolin 3,000 MG in SODIUM CHLORIDE 0.9% IRRIGATIO 3,000 ML IRRIGATION ONE (11:36)
[2023-08-23] MEDS ORDERED: bisacodyL 10 MG SUPP RECTAL PRN (12:11)
[2023-08-23] MEDS ORDERED: NA PHOS,M-B/NA PHOS,DI-BA 133 ML ENEMA RECTAL PRN (12:11)
[2023-08-23] MEDS ORDERED: HYDROmorphone 0.5 MG/0.5 ML SYRINGE IVP PRN ×2 (12:11)
[2023-08-23] MEDS: LACTATED RINGERS 1,000 ML IV ONE (12:14)
[2023-08-23] MEDS: HYDROmorphone 0.5 MG/0.5 ML SYRINGE IVP PRN (13:13)
--- NOTE | 2023-08-23 16:20 | P.PN ---
Subjective Progress Note Date: 08/23/23 Hospital Course: Patient is a pleasant 83-year-old female with a past medical history of chronic atrial fibrillation on anticoagulation with Eliquis, hypertension, hyperlipidemia, and hypothyroidism. She presented to the emergency department with left lower extremity pain and swelling. Patient lives in [place] and is here in [place] for her son's . She reports upon getting into her iyhqunuk-hz-rbo's car after her son's yesterday she bumped her leg on the door. Initially, patient reports it was sore but did not think much of it. She reports throughout the day and night the swelling and pain to her left lower extremity worsened. She denies any other pain or injuries and denies any other complaints at this time including headache, lightheadedness, dizziness, chest pain, palpitations, shortness of breath, or experiencing any numbness or focal weakness in her extremities. Patient does report difficulty bearing weight weight/ambulating on left lower extremity secondary to pain. She underwent full evaluation in the emergency department. Vital signs upon arrival show blood pressure 137/62, heart rate 89, respiratory rate 18, temp 97.6 F, and SpO2 of 97% on room air. Labs completed and reviewed. CBC showing mild leukocytosis with WBC count of 14.1 otherwise normal findings. Coagulation profile normal findings. BMP showing mild non-anion gap metabolic acidosis with chloride 109, bicarb 20, and anion gap of 8. Renal function slightly elevated with BUN of 36, creatinine 1.14, and GFR 45 unknown baseline as [place] is from [place] and no previous labs are available for comparison. Lactic acid was 1.5. X-ray completed negative for acute fracture or dislocation revealing an approximately 12 x 4 cm ovoid opacity in the left lateral lower leg consistent with hematoma. Patient admitted under our services with consultation to orthopedic surgery team for evaluation. Patient reports receiving Tdap vaccination in 2022. Patient had acute blood loss anemia with hemoglobin dropping from 14.8 down to 11.2. CTA left lower extremity was completed to further evaluate hematoma and assess for any signs of active bleeding. CTA revealed large hematoma along the lateral aspect of the leg measuring 23 cm x 1.5 cm x 4 cm, however showing no active extravasation of contrast. Continued monitoring of hemoglobin decreasing down to 10.2. Patient being taken to OR by orthopedic surgery team for incision and drainage. Physical exam: Patient seen and fully evaluated at bedside this morning. Hematoma appears stable this morning. Patient is having mild oozing of blood from site, but does not appear larger upon visual examination when compared to yesterday. Patient is awaiting to be taken down to OR for I&D. Vital signs reviewed and stable. General: Nontoxic, no distress and appears stated age. Derm: Skin warm and dry, normal coloration for ethnicity. Head: Atraumatic, normocephalic and symmetric. Eyes: EOMs intact, no lid lag, and anicteric sclera Mouth: no lip lesions, mucus membranes moist Cardiovascular: Irregularly irregular with normal S1S2, no murmur, positive posterior tibial pulses bilaterally, and cap refill < 2 seconds. Lungs: Respirations even, regular, and unlabored on room air. Lungs CTA bilaterally, no rhonchi, no rales, no wheezing, and no accessory muscle usage. Abdominal: soft, nontender to palpation, no guarding, no appreciable organomegaly Ext: No gross muscle atrophy, no contractures. Movement and sensation remains intact. Dorsiflexion and plantarflexion remains intact. Patient with bilateral lower extremity edema and peripheral vascular dermatitis. Left lower extremity with large hematoma to lateral surface of lower leg which appears slightly larger today. No active bleeding noted at this time. Dressing intact. Neuro: Speech clear, face symmetrical and CN II-XII grossly intact with no noted focal neuro deficits Psych: Alert and oriented to person, place, time, and situation. Appropriate and pleasant affect. Assessment and Plan of Care: Large left lower extremity hematoma Symptomatic acute blood loss anemia, with episode of dizziness/lightheadedness upon standing. -Hemoglobin currently 10.2 from initial 14.8 upon admission. -CTA revealed large hematoma along the lateral aspect of the leg measuring 23 cm x 1.5 cm x 4 cm, however showing no active extravasation of contrast. -Continue empiric IV antibiotics with cefepime 2 g IVPB every 12 hours. -Orthopedic surgery following, discussed plan of care with orthopedic surgery PA whom stated they plan to take patient for I&D later today. -Continue to hold Eliquis pending clearance by orthopedic surgery team to resume. -Symptomatic care and pain management with Tylenol 650 mg every 6 hours as needed for mild pain, tramadol 50 mg as needed for moderate pain, and Dilaudid 0.5 mg IVP every 3 hours as needed for severe pain.. -Continue elevation of left lower extremity with neurovascular checks every 4 hours. -PT/OT consulted. Fall precautions in place. -Continued close monitoring of hemoglobin with repeat morning CBC and will transfuse if indicated for hemoglobin less than 7. Transaminitis -Unclear if chronic, no previous labs available for comparison. We will monitor. Hypomagnesemia, resolved -Magnesium 1.9 after replacement. Chronic atrial fibrillation Hypertension Hyperlipidemia -Hold Eliquis pending clearance from orthopedic surgery team to resume. Patient to continue daily medication regimen with Cardizem 120 mg daily, lisinopril 20 mg twice daily, metoprolol 100 mg twice daily, pravastatin 40 mg nightly, and Aldactone 25 mg daily. Hypothyroidism -Continue daily medication regimen with levothyroxine 100 mcg daily. Data and imaging reviewed: Morning labs reviewed. CBC showing hemoglobin of 10.2 and platelet count of 135. BMP showing mild hyponatremia with sodium 134 and prerenal azotemia with BUN of 25. Liver profile showing continued but stable transaminitis with AST of 65, ALT of 75, and alkaline phosphatase of 207. Vital signs reviewed. Blood pressure 137/74, heart rate 94, respiratory rate 16, temp 97.8 F, and SpO2 of 98% on room air. CTA revealed large hematoma along the lateral aspect of the leg measuring 23 cm x 1.5 cm x 4 cm, however showing no active extravasation of contrast. CODE STATUS: Full code DVT prophylaxis: SCDs pending clearance from orthopedic surgery team to resume Eliquis Anticipated discharge date: Clinical course to determine Anticipated discharge place: Clinical course to determine Patient was seen independently by Nurse Practitioner. This document was prepared using [employer] dictation software. Please allow for errors in car sales associate while rare they do occur. I reviewed the documentation as provided by the RAYMOND above, who is the original author of this note. I agree with the documented assessment and plan, with the following changes: none Objective - Vital Signs Vital signs: Vital Signs Temp 97.4 F L 08/23/23 02:00 Pulse 88 08/23/23 02:00 Resp 18 08/22/23 15:00 BP 130/75 08/23/23 02:00 Pulse Ox 95 08/23/23 02:00 FiO2 Intake & Output 08/22/23 08/23/23 08/23/23 18:59 06:59 18:59 Intake Total 358 Balance 358 Intake: Oral 358 Other: # Voids 1 1 - Labs CBC & Chem 7: 08/23/23 07:01 08/23/23 07:01 Labs: Abnormal Lab Results - Last 24 Hours (Table) 08/22/23 08/22/23 08/22/23 Range/Units 07:13 07:13 16:35 WBC 11.1 H 13.7 H (3.8-10.6) k/uL RBC 3.42 L 3.34 L (3.80-5.40) m/uL Hgb 11.2 L D 11.1 L (11.4-16.0) gm/dL Hct 33.2 L (34.0-46.0) % Plt Count 145 L (150-450) k/uL Sodium 136 L (137-145) mmol/L BUN 33 H (7-17) mg/dL Glucose 131 H (74-99) mg/dL Magnesium 1.5 L (1.6-2.3) mg/dL AST 85 H (14-36) U/L ALT 91 H (4-34) U/L Alkaline Phosphatase 182 H (38-126) U/L Total Protein 5.3 L (6.3-8.2) g/dL Albumin 3.1 L (3.5-5.0) g/dL 08/23/23 Range/Units 07:01 WBC (3.8-10.6) k/uL RBC 3.09 L (3.80-5.40) m/uL Hgb 10.2 L (11.4-16.0) gm/dL Hct 30.6 L (34.0-46.0) % Plt Count 135 L (150-450) k/uL Sodium (137-145) mmol/L BUN (7-17) mg/dL Glucose (74-99) mg/dL Magnesium (1.6-2.3) mg/dL AST (14-36) U/L ALT (4-34) U/L Alkaline Phosphatase (38-126) U/L Total Protein (6.3-8.2) g/dL Albumin (3.5-5.0) g/dL
--- NOTE | 2023-08-23 19:31 | OP ---
OPERATIVE REPORT DATE OF SERVICE : 08/23/2023 PREOPERATIVE DIAGNOSIS: Left lower leg large subcutaneous hematoma, anterolateral leg. POSTOPERATIVE DIAGNOSIS: Left anterolateral lower leg 23 cm x 4 cm subcutaneous hematoma. PROCEDURES PERFORMED: 1. Incision and drainage, left anterolateral lower leg hematoma. Hematoma measured 23 cm x 4 cm. 2. Left lower leg VAC sponge placement. ANESTHESIA: General. ESTIMATED BLOOD LOSS: 50 mL. COMPLICATIONS: None. DRAINS: VAC dressing was placed. DISPOSITION: Postanesthesia care unit. INDICATIONS: Mora is a very pleasant 83-year-old female, who injured her left lower leg on 08/20/2023. She was in town for a . She does live in [place]. She is also on Eliquis for atrial fibrillation. She also has chronic bilateral lower extremity cellulitis and edema that she has been treating with a provider in [place] where she lives. She cannot recall an injury. However, she did present to the emergency department with swelling in her left lower leg. She was admitted. It was noted that she had a large anterolateral lower leg hematoma. Her neurovascular exam remained normal. She then subsequently went on to have a CT angiogram, which revealed a 23 cm x 4 cm subcutaneous hematoma. Due to the large size of the hematoma and her fragile skin, the decision was made to proceed with evacuation of the hematoma. The risks were explained to Mora. The risks of the procedure include, but are not limited to risk of infection, nerve damage, continued bleeding, pain, small risk of deep vein thrombosis which could lead to fatal pulmonary embolism. Further risks include the possibility for skin necrosis, which could require further operative treatments in the future. The patient understands these risks. All of her questions with regard to the procedure were answered to her satisfaction. Appropriate informed consent was obtained. DESCRIPTION OF PROCEDURE: The patient was identified in the preoperative holding area. Surgical site was marked by both patient and myself. She was currently on antibiotics on the floor. She was then transferred to the operative suite. She was placed supine on the operating room table. General anesthetic was then administered and dosed per the anesthesia department without apparent complication. A bump was then placed onto the left hip, well padded to allow for easier approach to the hematoma. The patient's left lower extremity was then prepped and draped in usual sterile fashion. Standard surgical pause was undertaken to ensure that we were operating the correct site and appropriate preoperative antibiotics had been given. All staff in the room were in agreement, and we proceeded. I then made a small incision in the anterior middle aspect of the hematoma. This was near the middle aspect of the anterolateral lower leg. This was made with a 10-blade scalpel. The hematoma was then evacuated. The skin was extremely fragile. She did have some skin tearing, which was relatively extensive. I did extend the incision both proximal and distal. Along with the skin tearing in the incision, the total incision measured approximately 15 cm. The hematoma was then evacuated. I did utilize a pulse lavage to irrigate the area. Ancef was added to the irrigation solution. I used 3 L of irrigation solution to irrigate after the hematoma was evacuated. In the distal aspect, the incision was then closed with interrupted 2-0 nylon sutures. These were horizontal mattress sutures. These were loosely placed. The more central aspect of the skin was relatively fragile. I did leave this open. I then placed a VAC sponge over the entire incision. So this essentially created an incisional wound VAC. This was then placed. The seal was maintained and the VAC sponge was then set to appropriate setting. At this point in time, no further work was deemed necessary. The general anesthetic was then reversed without apparent complication. All sponge and needle counts were deemed correct prior to closure. The patient tolerated the procedure without apparent complication. She was transferred to the recovery room in stable condition. CHARLENE / ELIANA: [id number] /
[2023-08-23] MEDS: SENNOSIDES-DOCUSATE SODIUM 1 EACH TAB PO SCH (21:27)
[2023-08-24 09:00] LABS: ALT 56 U/L (8-44); AST 37 U/L (13-35); Albumin 3.4 g/dL (3.8-4.9); Albumin/Globulin Ratio 1.55 Ratio (1.60-3.17); Alkaline Phosphatase 199 U/L (41-126); Blood Urea Nitrogen 23.1 mg/dL (9.0-27.0); Carbon Dioxide 23.8 mmol/L (21.6-31.8); Chloride 103 mmol/L (96-109); Globulin 2.2 g/dL (1.6-3.3); Glucose 138 mg/dL (70-110); Magnesium 1.9 mg/dL (1.5-2.4); Potassium 5.1 mmol/L (3.5-5.5); Sodium 138 mmol/L (135-145); Total Bilirubin 0.7 mg/dL (0.3-1.2); Total Protein 5.6 g/dL (6.2-8.2)
[2023-08-24 11:11] LABS: Basophils # (A) 0.01 X 10*3/uL (0.00-0.10); Basophils % (A) 0.1 %; Eosinophils # (A) 0 X 10*3/uL (0.04-0.35); Eosinophils % (A) 0 %; HCT 32.6 % (37.2-46.3); HGB 10.2 g/dL (12.0-15.0); Lymphocytes # (A) 0.88 X 10*3/uL (0.90-5.00); Lymphocytes % (A) 6.7 %; MCH 31.4 pg (27.0-32.0); MCHC 31.3 g/dL (32.0-37.0); MCV 100.3 FL (80.0-97.0); Mean Platelet Volume 12.8 FL (9.5-12.2); Monocytes # (A) 0.64 X 10*3/uL (0.20-1.00); Monocytes % (A) 4.9 %; NRBC Per 100 WBC 0.02 X 10*3/uL (0.00-0.01); Neutrophils # (A) 11.48 X 10*3/uL (1.80-7.70); Platelet Count 192 X 10*3/uL (140-440); RBC 3.25 X 10*6/uL (4.10-5.20); RDW 13.4 % (11.5-14.5); WBC 13.18 X 10*3/uL (4.50-10.00)
--- NOTE | 2023-08-24 12:23 | P.PN ---
Subjective Progress Note Date: 08/24/23 Principal diagnosis: Hematoma left leg Patient is seen at bedside this morning. She is postop day #1 from I and D of left lower leg hematoma. She has minimal pain at the surgical site. She denies any new complaints. She denies numbness, tingling or calf pain. Review of systems is negative for fever, chills, chest pain, shortness of breath or other POD #1 from Objective - Vital Signs Vital signs: Vital Signs Temp 97.8 F 08/24/23 08:00 Pulse 89 08/24/23 08:00 Resp 16 08/24/23 08:00 BP 128/72 08/24/23 08:00 Pulse Ox 99 08/24/23 08:00 FiO2 Intake & Output 08/23/23 08/24/23 08/24/23 18:59 06:59 18:59 Intake Total 1801 Output Total 25 Balance 1776 Weight 117.934 kg Intake: IV 901 Intake, IV Titration 900 Amount Sodium Chloride 0.9% 1, 900 000 ml @ 20 mls/hr IV . Q24H [facility] Rx#:[id number] Output: Estimated Blood Loss 25 Other: Voiding Method Toilet # Voids 1 1 # Bowel Movements 0 - Exam Inspection reveals a benign surgical wound. Wound Vac is in place and functioning. There is no active bleeding or drainage. Neurovascular status is intact throughout the lower extremity with motor and sensation fully intact. Calf is soft and nontender. 2+ dorsalis pedis pulse and less than 2 second cap refill is present. - Constitutional General appearance: Present: no acute distress - Labs CBC & Chem 7: 08/24/23 05:40 08/24/23 05:40 Labs: Abnormal Lab Results - Last 24 Hours (Table) 08/24/23 08/24/23 Range/Units 05:40 05:40 WBC 13.18 H (4.50-10.00) X 10*3/uL RBC 3.25 L (4.10-5.20) X 10*6/uL Hgb 10.2 L (12.0-15.0) g/dL Hct 32.6 L (37.2-46.3) % MCV 100.3 H (80.0-97.0) FL MCHC 31.3 L (32.0-37.0) g/dL MPV 12.8 H (9.5-12.2) FL Immature Gran # 0.17 H (0.00-0.04) X 10*3/uL Neutrophils # 11.48 H (1.80-7.70) X 10*3/uL Lymphocytes # 0.88 L (0.90-5.00) X 10*3/uL Eosinophils # 0 L (0.04-0.35) X 10*3/uL NRBC/100 WBC Diff 0.02 H (0.00-0.01) X 10*3/uL Est GFR (CKD-EPI) 56 L (>=60) BUN/Creatinine Ratio 23.10 H (12.00-20.00) Ratio Glucose 138 H (70-110) mg/dL AST 37 H (13-35) U/L ALT 56 H (8-44) U/L Alkaline Phosphatase 199 H (41-126) U/L Total Protein 5.6 L (6.2-8.2) g/dL Albumin 3.4 L (3.8-4.9) g/dL Albumin/Globulin Ratio 1.55 L (1.60-3.17) Ratio Assessment and Plan (1) Hematoma of left lower leg Narrative/Plan: She will continue with routine postop orthopedic protocol including pain management, wound care, PT, DVT prophylaxis and medical management. Wound care has been consulted. She may D/C from orthopedic standpoint when ok with primary team. She will need f/u for wound vac management and sutures out at POD #12 Current Visit: Yes Status: Acute Priority: Medium Code(s): S80.12XA - CONTUSION OF LEFT LOWER LEG, INITIAL ENCOUNTER SNOMED Code(s): 30825186434072096 Time with Patient: Less than 30
--- NOTE | 2023-08-24 17:00 | P.PN ---
Subjective Progress Note Date: 08/24/23 Hospital Course: Patient is a pleasant 83-year-old female with a past medical history of chronic atrial fibrillation on anticoagulation with Eliquis, hypertension, hyperlipidemia, and hypothyroidism. She presented to the emergency department with left lower extremity pain and swelling. Patient lives in [place] and is here in [place] for her son's . She reports upon getting into her [id number]'s car after her son's yesterday she bumped her leg on the door. Initially, patient reports it was sore but did not think much of it. She reports throughout the day and night the swelling and pain to her left lower extremity worsened. She denies any other pain or injuries and denies any other complaints at this time including headache, lightheadedness, dizziness, chest pain, palpitations, shortness of breath, or experiencing any numbness or focal weakness in her extremities. Patient does report difficulty bearing weight weight/ambulating on left lower extremity secondary to pain. She underwent full evaluation in the emergency department. Vital signs upon arrival show blood pressure 137/62, heart rate 89, respiratory rate 18, temp 97.6 F, and SpO2 of 97% on room air. Labs completed and reviewed. CBC showing mild leukocytosis with WBC count of 14.1 otherwise normal findings. Coagulation profile normal findings. BMP showing mild non-anion gap metabolic acidosis with chloride 109, bicarb 20, and anion gap of 8. Renal function slightly elevated with BUN of 36, creatinine 1.14, and GFR 45 unknown baseline as patient is from out of state and no previous labs are available for comparison. Lactic acid was 1.5. X-ray completed negative for acute fracture or dislocation revealing an approximately 12 x 4 cm ovoid opacity in the left lateral lower leg consistent with hematoma. Patient admitted under our services with consultation to orthopedic surgery team for evaluation. Patient reports receiving Tdap vaccination in 2022. Patient had acute blood loss anemia with hemoglobin dropping from 14.8 down to 11.2. CTA left lower extremity was completed to further evaluate hematoma and assess for any signs of active bleeding. CTA revealed large hematoma along the lateral aspect of the leg measuring 23 cm x 1.5 cm x 4 cm, however showing no active extravasation of contrast. Continued monitoring of hemoglobin decreasing down to 10.2. Patient was taken to OR by orthopedic surgery team for incision and drainage with application of wound VAC on 08/23/2023. Physical exam: Patient seen and fully evaluated at bedside this morning. She is postop day 1 status post I&D with application of wound VAC. She appears to be doing well this morning. Secondary to patient's baseline need for ambulation with walker and current hematoma status post I&D with wound VAC, patient will require subacute rehab placement. Discussed with case management. Patient is from [place] and they are currently making arrangements for patient to be discharged to rehab facility. Vital signs reviewed and stable. General: Nontoxic, no distress and appears stated age. Derm: Skin warm and dry, normal coloration for ethnicity. Head: Atraumatic, normocephalic and symmetric. Eyes: EOMs intact, no lid lag, and anicteric sclera Mouth: no lip lesions, mucus membranes moist Cardiovascular: Irregularly irregular with normal S1S2, no murmur, positive posterior tibial pulses bilaterally, and cap refill < 2 seconds. Lungs: Respirations even, regular, and unlabored on room air. Lungs CTA bilaterally, no rhonchi, no rales, no wheezing, and no accessory muscle usage. Abdominal: soft, nontender to palpation, no guarding, no appreciable organomegaly Ext: No gross muscle atrophy, no contractures. Movement and sensation remains intact. Dorsiflexion and plantarflexion remains intact. Patient with bilateral lower extremity edema and peripheral vascular dermatitis. Left lower extremity with large hematoma to lateral surface of lower leg which appears slightly larger today. No active bleeding noted at this time. Dressing intact. Neuro: Speech clear, face symmetrical and CN II-XII grossly intact with no noted focal neuro deficits Psych: Alert and oriented to person, place, time, and situation. Appropriate and pleasant affect. Assessment and Plan of Care: Large left lower extremity hematoma status post I&D on 08/23/2023 with application of wound VAC Symptomatic acute blood loss anemia, with episode of dizziness/lightheadedness upon standing. -Hemoglobin currently 10.2 from initial 14.8 upon admission. -CTA revealed large hematoma along the lateral aspect of the leg measuring 23 cm x 1.5 cm x 4 cm, however showing no active extravasation of contrast. -Continue empiric IV antibiotics with cefepime 2 g IVPB every 12 hours. -Orthopedic surgery following, discussed plan of care with orthopedic surgery PA. Patient is status post I&D with application of wound VAC on 08/23/2023. -Continue to hold Eliquis pending clearance by orthopedic surgery team to resume. -Symptomatic care and pain management with Tylenol 650 mg every 6 hours as needed for mild pain, tramadol 50 mg as needed for moderate pain, and Dilaudid 0.5 mg IVP every 3 hours as needed for severe pain.. -Continue elevation of left lower extremity with neurovascular checks every 4 hours. -PT/OT following. Fall precautions in place. -Continued close monitoring of hemoglobin with repeat morning CBC and will transfuse if indicated for hemoglobin less than 7. Transaminitis -Unclear if chronic, no previous labs available for comparison. We will monitor. Hypomagnesemia, resolved -Magnesium 1.9 after replacement. Chronic atrial fibrillation Hypertension Hyperlipidemia -Hold Eliquis pending clearance from orthopedic surgery team to resume. Patient to continue daily medication regimen with Cardizem 120 mg daily, lisinopril 20 mg twice daily, metoprolol 100 mg twice daily, pravastatin 40 mg nightly, and Aldactone 25 mg daily. Hypothyroidism -Continue daily medication regimen with levothyroxine 100 mcg daily. Data and imaging reviewed: Morning labs reviewed. CBC showing stable hemoglobin with no further drop over the past 24 hours remaining at 10.2 and mild leukocytosis with WBC count of 13.18. BMP unremarkable. Liver profile showing continued but improving transaminitis with AST of 37, ALT of 56, and alkaline phosphatase of 199. Magnesium normal findings at 1.9. Vital signs reviewed. Blood pressure 128/72, heart rate 89, respiratory rate 16, temp 97.8 F, and SpO2 of 99% on room air. CODE STATUS: Full code DVT prophylaxis: SCDs pending clearance from orthopedic surgery team to resume Eliquis Anticipated discharge date: Pending placement and insurance authorization. Anticipated discharge place: SNF, case management working on placement in rehab facility in [place] Patient was seen independently by Nurse Practitioner. This document was prepared using [employer] dictation software. Please allow for errors in director oncology while rare they do occur. I reviewed the documentation as provided by the RAYMOND above, who is the original author of this note. I agree with the documented assessment and plan, with the following changes: none Objective - Vital Signs Vital signs: Vital Signs Temp 97.7 F 08/24/23 01:32 Pulse 76 08/24/23 01:32 Resp 16 08/24/23 01:32 BP 113/67 08/24/23 01:32 Pulse Ox 99 08/24/23 01:32 FiO2 Intake & Output 08/23/23 08/24/23 08/24/23 18:59 06:59 18:59 Intake Total 1801 Output Total 25 Balance 1776 Weight 117.934 kg Intake: IV 901 Intake, IV Titration 900 Amount Sodium Chloride 0.9% 1, 900 000 ml @ 20 mls/hr IV . Q24H [facility] Rx#:[id number] Output: Estimated Blood Loss 25 Other: Voiding Method Toilet # Voids 1 1 # Bowel Movements 0 - Labs CBC & Chem 7: 08/24/23 05:40 08/24/23 05:40
[2023-08-24] MEDS: MULTIVITAMINS, THERA 1 EACH TAB PO SCH (17:40)
[2023-08-25 09:39] LABS: HCT 27.8 % (37.2-46.3); HGB 9.1 g/dL (12.0-15.0); MCH 31.7 pg (27.0-32.0); MCHC 32.7 g/dL (32.0-37.0); MCV 96.9 FL (80.0-97.0); NRBC Per 100 WBC 0 X 10*3/uL (0.00-0.01); Platelet Count 195 X 10*3/uL (140-440); RBC 2.87 X 10*6/uL (4.10-5.20); RDW 13.6 % (11.5-14.5); WBC 12.39 X 10*3/uL (4.50-10.00)
[2023-08-25 10:16] LABS: ALT 40 U/L (8-44); AST 27 U/L (13-35); Albumin 3.1 g/dL (3.8-4.9); Albumin/Globulin Ratio 1.48 Ratio (1.60-3.17); Alkaline Phosphatase 154 U/L (41-126); BUN/Creat Ratio 33.18 Ratio (12.00-20.00); Blood Urea Nitrogen 36.5 mg/dL (9.0-27.0); Calcium 9.6 mg/dL (8.7-10.3); Carbon Dioxide 22.8 mmol/L (21.6-31.8); Chloride 105 mmol/L (96-109); Globulin 2.1 g/dL (1.6-3.3); Glucose 140 mg/dL (70-110); Magnesium 1.9 mg/dL (1.5-2.4); Potassium 4.8 mmol/L (3.5-5.5); Sodium 137 mmol/L (135-145); Total Bilirubin 0.5 mg/dL (0.3-1.2); Total Protein 5.2 g/dL (6.2-8.2)
--- NOTE | 2023-08-25 11:03 | P.PN ---
Progress Note - Text Progress Note Date: 08/25/23 Orthopedics: History of present illness: Patient is a very pleasant 83-year-old female who is seen and examined at the bedside for follow-up evaluation for her left lower extremity. She is status post day 2 from incision and drainage of the left lower extremity hematoma. She currently has a wound VAC in [facility]. She states her pain is well-controlled. She denies any current difficulties with her left lower extremity. She has good range of motion with dorsiflexion and plantarflexion. Her left calf is soft. She has no pain at her left distal thigh. She does admit to chronic cellulitis in her lower extremities. Patient resides in [place]. She states her son on Sunday and she came to [place] to visit her son before he . She states at discharge she plan to return back to [place]. Given her wound VAC, current plan is transfer to a rehabilitation facility in [place]. There had been plans to discontinue her wound VAC at the time of discharge and to dress her left lower extremity wound with wet-to-dry dressing with plans for reapplication of wound VAC once the patient gets to the rehabilitation facility in [place]. Authorization is currently pending. Patient is hopeful for discharge today. She will be taken to rehabilitation facility in [place] by her granddaughter. Patient continues to be seen and examined by medicine and was discussed with medicine this morning. Physical Exam: Patient is awake, alert, and oriented 3 Vital signs stable Good chest excursion with deep inspiration and expiration No signs or symptoms of DVT; no calf pain Palpation of left calf is soft Extensor hallucis longus, plantarflexion, and dorsiflexion positive sustained bilateral lower extremities No pain with palpation over the left distal thigh, left calf, left ankle, or left foot Wound VAC is intact over the left lateral lower extremity wound with good seal Assessment: Status post incision and drainage for left lower extremity large subcutaneous hematoma Left lower extremity wound VAC intact Left lower extremity leg pain Hypothyroidism Chronic atrial fibrillation Hypertension Hyperlipidemia Reported chronic cellulitis in the lower extremities Plan: 1. Patient is status post day #2 incision and drainage for left lower extremity large subcutaneous hematoma with wound VAC placement. She states her pain is well-controlled. She denies any current difficulties with her left lower extremity. She has good range of motion with dorsiflexion and plantarflexion. Her left calf is soft. She has no pain at her left distal thigh. Patient resides in [place]. She states at discharge she plan to return back to [place]. Given her wound VAC, current plan is transfer to a rehabilitation facility in [place]. Case management has been working on discharge plans and appro dedrick with acceptance to rehabilitation facility in [place]. If authorization is received today, they are planning for discharge today. The current plan would be to discontinue her wound VAC at the time of discharge and to dress her left lower extremity wound with wet-to-dry dressing with plans for reapplication of wound VAC once the patient gets to the rehabilitation facility in [place]. Authorization is currently pending. Patient is hopeful for discharge today. She will be taken to rehabilitation facility in [place] by her granddaughter. From an orthopedic standpoint, patient is cleared for discharge. Patient will continue with wound care through the rehabilitation facility in [place]. Patient does have sutures intact will need to be removed postop day #12. We would not plan to have her follow-up for further evaluation back here in [place]. Plan of care has been discussed in detail with medicine. 2. Patient will continue to be seen and examined by medicine for her multiple other medical diagnoses and will continue to manage her from a medical standpoint. Patient may resume anticoagulation as needed per recommendations of medicine. Patient was previously on Eliquis..
--- NOTE | 2023-08-25 16:23 | P.PN ---
Subjective Progress Note Date: 08/25/23 Hospital Course: Patient is a pleasant 83-year-old female with a past medical history of chronic atrial fibrillation on anticoagulation with Eliquis, hypertension, hyperlipidemia, and hypothyroidism. She presented to the emergency department with left lower extremity pain and swelling. Patient lives in [place] and is here in [place] for her son's . She reports upon getting into her affpgbri-iz-tvf's car after her son's yesterday she bumped her leg on the door. Initially, patient reports it was sore but did not think much of it. She reports throughout the day and night the swelling and pain to her left lower extremity worsened. She denies any other pain or injuries and denies any other complaints at this time including headache, lightheadedness, dizziness, chest pain, palpitations, shortness of breath, or experiencing any numbness or focal weakness in her extremities. Patient does report difficulty bearing weight weight/ambulating on left lower extremity secondary to pain. She underwent full evaluation in the emergency department. Vital signs upon arrival show blood pressure 137/62, heart rate 89, respiratory rate 18, temp 97.6 F, and SpO2 of 97% on room air. Labs completed and reviewed. CBC showing mild leukocytosis with WBC count of 14.1 otherwise normal findings. Coagulation profile normal findings. BMP showing mild non-anion gap metabolic acidosis with chloride 109, bicarb 20, and anion gap of 8. Renal function slightly elevated with BUN of 36, creatinine 1.14, and GFR 45 unknown baseline as patient is from [place] of state and no previous labs are available for comparison. Lactic acid was 1.5. X-ray completed negative for acute fracture or dislocation revealing an approximately 12 x 4 cm ovoid opacity in the left lateral lower leg consistent with hematoma. Patient admitted under our services with consultation to orthopedic surgery team for evaluation. Patient reports receiving Tdap vaccination in 2022. Patient had acute blood loss anemia with hemoglobin dropping from 14.8 down to 11.2. CTA left lower extremity was completed to further evaluate hematoma and assess for any signs of active bleeding. CTA revealed large hematoma along the lateral aspect of the leg measuring 23 cm x 1.5 cm x 4 cm, however showing no active extravasation of contrast. Continued monitoring of hemoglobin decreasing down to 10.2. Patient was taken to OR by orthopedic surgery team for incision and drainage with application of wound VAC on 08/23/2023. Physical exam: Patient seen and fully evaluated at bedside this morning. She is postop day 2 status post I&D with application of wound VAC. Patient sitting up in chair this morning. She is anxiously awaiting discharge to rehab. Patient updated that we continue to await insurance authorization at this time. Vital signs reviewed and stable. General: Nontoxic, no distress and appears stated age. Derm: Skin warm and dry, normal coloration for ethnicity. Head: Atraumatic, normocephalic and symmetric. Eyes: EOMs intact, no lid lag, and anicteric sclera Mouth: no lip lesions, mucus membranes moist Cardiovascular: Irregularly irregular with normal S1S2, no murmur, positive posterior tibial pulses bilaterally, and cap refill < 2 seconds. Lungs: Respirations even, regular, and unlabored on room air. Lungs CTA bilaterally, no rhonchi, no rales, no wheezing, and no accessory muscle usage. Abdominal: soft, nontender to palpation, no guarding, no appreciable org anomegaly Ext: No gross muscle atrophy, no contractures. Movement and sensation remains intact. Dorsiflexion and plantarflexion remains intact. Patient with bilateral lower extremity edema and peripheral vascular dermatitis. Left lower extremity bruising, wound VAC in place left lateral lower extremity. Neuro: Speech clear, face symmetrical and CN II-XII grossly intact with no noted focal neuro deficits Psych: Alert and oriented to person, place, time, and situation. Appropriate and pleasant affect. Assessment and Plan of Care: Large left lower extremity hematoma status post I&D on 08/23/2023 with application of wound VAC Acute blood loss anemia, with episode of dizziness/lightheadedness upon standing. -Hemoglobin currently 9.1 from initial 14.8 upon admission. -Continue empiric IV antibiotics with cefepime 2 g IVPB every 12 hours, will discontinue today -Orthopedic surgery following, discussed plan of care with orthopedic surgery PA. Patient is status post I&D with application of wound VAC on 08/23/2023. -Continue to hold Eliquis pending clearance by orthopedic surgery team to resume. -Symptomatic care and pain management with Tylenol 650 mg every 6 hours as needed for mild pain, tramadol 50 mg as needed for moderate pain, and Dilaudid 0.5 mg IVP every 3 hours as needed for severe pain.. -Continue elevation of left lower extremity with neurovascular checks every 4 ho urs. -PT/OT following. Fall precautions in place. Case management arranging placement in SNF. -Continued close monitoring of hemoglobin with repeat morning CBC and will transfuse if indicated for hemoglobin less than 7. Transaminitis, improving Hypomagnesemia, resolved Chronic atrial fibrillation Hypertension Hyperlipidemia -Hold Eliquis pending clearance from orthopedic surgery team to resume. Patient to continue daily medication regimen with Cardizem 120 mg daily, lisinopril 20 mg twice daily, metoprolol 100 mg twice daily, pravastatin 40 mg nightly, and Aldactone 25 mg daily. Hypothyroidism -Continue daily medication regimen with levothyroxine 100 mcg daily. Data and imaging reviewed: Morning labs reviewed. CBC showing hemoglobin 9.1 and WBC count of 12.39. BMP unremarkable. Blood glucose 140. Magnesium 1.9. Liver profile showing improvement and near resolution of previous transaminitis with AST of 27, ALT of 40, and alkaline phosphatase of 154. Vital signs reviewed. Blood pressure 128/75, heart rate 91, respiratory rate 19, temp 98.1 F, and SpO2 of 94% on room air. I reviewed the documentation as provided by the RAYMOND above, who is the original author of this note. I agree with the documented assessment and plan, with the following changes: none CODE STATUS: Full code DVT prophylaxis: SCDs pending clearance from orthopedic surgery team to resume Eliquis Anticipated discharge date: Pending insurance authorization. Anticipated discharge place: SNF Patient was seen independently by Nurse Practitioner. This document was prepared using [employer] dictation software. Please allow for errors in nursing coordinator while rare they do occur. Objective - Vital Signs Vital signs: Vital Signs Temp 98.1 F 08/25/23 07:19 Pulse 91 08/25/23 07:19 Resp 19 08/25/23 07:19 BP 128/75 08/25/23 07:19 Pulse Ox 94 L 08/25/23 07:19 FiO2 Intake & Output 08/24/23 08/25/23 08/25/23 18:59 06:59 18:59 Intake Total 697 Balance 697 Intake: Oral 697 Other: Voiding Method Toilet # Voids 2 1 - Labs CBC & Chem 7: 08/25/23 04:35 08/25/23 04:35 Labs: Abnormal Lab Results - Last 24 Hours (Table) 08/24/23 08/24/23 Range/Units 05:40 05:40 WBC 13.18 H (4.50-10.00) X 10*3/uL RBC 3.25 L (4.10-5.20) X 10*6/uL Hgb 10.2 L (12.0-15.0) g/dL Hct 32.6 L (37.2-46.3) % MCV 100.3 H (80.0-97.0) FL MCHC 31.3 L (32.0-37.0) g/dL MPV 12.8 H (9.5-12.2) FL Immature Gran # 0.17 H (0.00-0.04) X 10*3/uL Neutrophils # 11.48 H (1.80-7.70) X 10*3/uL Lymphocytes # 0.88 L (0.90-5.00) X 10*3/uL Eosinophils # 0 L (0.04-0.35) X 10*3/uL NRBC/100 WBC Diff 0.02 H (0.00-0.01) X 10*3/uL Est GFR (CKD-EPI) 56 L (>=60) BUN/Creatinine Ratio 23.10 H (12.00-20.00) Ratio Glucose 138 H (70-110) mg/dL AST 37 H (13-35) U/L ALT 56 H (8-44) U/L Alkaline Phosphatase 199 H (41-126) U/L Total Protein 5.6 L (6.2-8.2) g/dL Albumin 3.4 L (3.8-4.9) g/dL Albumin/Globulin Ratio 1.55 L (1.60-3.17) Ratio
[2023-08-25] MEDS: MAGNESIUM HYDROXIDE 2,400 MG/30 ML CUP PO PRN (17:56)
[2023-08-25] MEDS: DOCUSATE 100 MG CAP PO PRN (18:26)
[2023-08-26] MEDS: APIXABAN 5 MG TAB PO SCH (10:51)
--- NOTE | 2023-08-26 11:07 | P.PN ---
Subjective Progress Note Date: 08/26/23 Hospital Course: Patient is a pleasant 83-year-old female with a past medical history of chronic atrial fibrillation on anticoagulation with Eliquis, hypertension, hyperlipidemia, and hypothyroidism. She presented to the emergency department with left lower extremity pain and swelling. Patient lives in [place] and is here in [place] for her son's . She reports upon getting into her [id number]-frz's car after her son's yesterday she bumped her leg on the door. Initially, patient reports it was sore but did not think much of it. She reports throughout the day and night the swelling and pain to her left lower extremity worsened. She denies any other pain or injuries and denies any other complaints at this time including headache, lightheadedness, dizziness, chest pain, palpitations, shortness of breath, or experiencing any numbness or focal weakness in her extremities. Patient does report difficulty bearing weight weight/ambulating on left lower extremity secondary to pain. She underwent full evaluation in the emergency department. Vital signs upon arrival show blood pressure 137/62, heart rate 89, respiratory rate 18, temp 97.6 F, and SpO2 of 97% on room air. Labs completed and reviewed. CBC showing mild leukocytosis with WBC count of 14.1 otherwise normal findings. Coagulation profile normal findings. BMP showing mild non-anion gap metabolic acidosis with chloride 109, bicarb 20, and anion gap of 8. Renal function slightly elevated with BUN of 36, creatinine 1.14, and GFR 45 unknown baseline as [place] is [place] and no previous labs are available for comparison. Lactic acid was 1.5. X-ray completed negative for acute fracture or dislocation revealing an approximately 12 x 4 cm ovoid opacity in the left lateral lower leg consistent with hematoma. Patient admitted under our services with consultation to orthopedic surgery team for evaluation. Patient reports receiving Tdap vaccination in 2022. Patient had acute blood loss anemia with hemoglobin dropping from 14.8 down to 11.2. CTA left lower extremity was completed to further evaluate hematoma and assess for any signs of active bleeding. CTA revealed large hematoma along the lateral aspect of the leg measuring 23 cm x 1.5 cm x 4 cm, however showing no active extravasation of contrast. Continued monitoring of hemoglobin decreasing down to 10.2. Patient was taken to OR by orthopedic surgery team for incision and drainage with application of wound VAC on 08/23/2023. Physical exam: Patient seen and fully evaluated at bedside this morning. She is postop day 3 status post I&D with application of wound VAC. Patient sitting up in chair again this morning and reports having a good morning and having a bowel movement. She was restarted on Eliquis this morning after being cleared by gen beard to resume She continues to anxiously await discharge to rehab, pt reports understanding that we are awaiting insurance authorization. Vital signs reviewed and stable. General: Nontoxic, no distress and appears stated age. Derm: Skin warm and dry, normal coloration for ethnicity. Head: Atraumatic, normocephalic and symmetric. Eyes: EOMs intact, no lid lag, and anicteric sclera Mouth: no lip lesions, mucus membranes moist Cardiovascular: Irregularly irregular with normal S1S2, no murmur, positive posterior tibial pulses bilaterally, and cap refill < 2 seconds. Lungs: Respirations even, regular, and unlabored on room air. Lungs CTA bilat erally, no rhonchi, no rales, no wheezing, and no accessory muscle usage. Abdominal: soft, nontender to palpation, no guarding, no appreciable organomegaly Ext: No gross muscle atrophy, no contractures. Movement and sensation remains intact. Dorsiflexion and plantarflexion remains intact. Patient with bilateral lower extremity edema and peripheral vascular dermatitis. Left lower extremity bruising, wound VAC in place left lateral lower extremity. Neuro: Speech clear, face symmetrical and CN II-XII grossly intact with no noted focal neuro deficits Psych: Alert and oriented to person, place, time, and situation. Appropriate and pleasant affect. Assessment and Plan of Care: Large left lower extremity hematoma status post I&D on 08/23/2023 with application of wound VAC Acute blood loss anemia, with episode of dizziness/lightheadedness upon standing. -Hemoglobin currently 9.1 from initial 14.8 upon admission. -Completed a 5-day course of empiric IV antibiotics with cefepime. -Orthopedic surgery following, Patient is status post I&D with application of wound VAC on 08/23/2023. -Symptomatic care and pain management with Tylenol 650 mg every 6 hours as needed for mild pain, tramadol 50 mg as needed for moderate pain, and Dilaudid 0.5 mg IVP every 3 hours as needed for severe pain.. -Continue elevation of left lower extremity with neurovascular checks every 4 hours. -PT/OT following. Fall precautions in place. Case management arranging placement in SNF. -Continued close monitoring of hemoglobin with repeat morning CBC and will transfuse if indicated for hemoglobin less than 7. Transaminitis, improving Hypomagnesemia, resolved Chronic atrial fibrillation Hypertension Hyperlipidemia -Resumed Eliquis 5 mg twice daily this morning after clearance by orthopedic surgery team to resume. Patient to continue daily medication regimen with Cardizem 120 mg daily, lisinopril 20 mg twice daily, metoprolol 100 mg twice daily, pravastatin 40 mg nightly, and Aldactone 25 mg daily. Hypothyroidism -Continue daily medication regimen with levothyroxine 100 mcg daily. Data and imaging reviewed: Morning labs pending at this time, will follow-up with results once available Vital signs reviewed. Blood pressure 126/72, heart rate 91, respiratory rate 17, temp 98.4 F, and SpO2 of 99% on room air. CODE STATUS: Full code DVT prophylaxis: Eliquis Anticipated discharge date: Patient medically cleared for discharge, discharge is delayed pending insurance authorization. Anticipated discharge place: SNF Patient was seen independently by Nurse Practitioner. This document was prepared using [employer] dictation software. Please allow for errors in conductor pullman while rare they do occur. I reviewed the documentation as provided by the RAYMOND above, who is the original author of this note. I agree with the documented assessment and plan, with the following changes: none Objective - Vital Signs Vital signs: Vital Signs Temp 98.4 F 08/26/23 07:14 Pulse 91 08/26/23 07:14 Resp 17 08/26/23 07:14 BP 126/72 08/26/23 07:14 Pulse Ox 99 08/26/23 01:34 FiO2 Intake & Output 08/25/23 08/26/23 08/26/23 17:59 06:59 18:59 Output Total Balance Output: Drainage Left Calf Other: Voiding Method # Voids - Labs CBC & Chem 7: 08/26/23 05:45 08/26/23 05:45 Labs: Abnormal Lab Results - Last 24 Hours (Table) 08/25/23 08/25/23 Range/Units 04:35 04:35 WBC 12.39 H (4.50-10.00) X 10*3/uL RBC 2.87 L (4.10-5.20) X 10*6/uL Hgb 9.1 L (12.0-15.0) g/dL Hct 27.8 L (37.2-46.3) % BUN 36.5 H (9.0-27.0) mg/dL Est GFR (CKD-EPI) 50 L (>=60) BUN/Creatinine Ratio 33.18 H (12.00-20.00) Ratio Glucose 140 H (70-110) mg/dL Alkaline Phosphatase 154 H (41-126) U/L Total Protein 5.2 L (6.2-8.2) g/dL Albumin 3.1 L (3.8-4.9) g/dL Albumin/Globulin Ratio 1.48 L (1.60-3.17) Ratio
[2023-08-26 11:15] LABS: Basophils # (A) 0.03 X 10*3/uL (0.00-0.10); Basophils % (A) 0.3 %; Eosinophils # (A) 0.28 X 10*3/uL (0.04-0.35); Eosinophils % (A) 2.5 %; HCT 32.3 % (37.2-46.3); HGB 10.3 g/dL (12.0-15.0); Lymphocytes # (A) 1.49 X 10*3/uL (0.90-5.00); Lymphocytes % (A) 13.5 %; MCH 31.6 pg (27.0-32.0); MCHC 31.9 g/dL (32.0-37.0); MCV 99.1 FL (80.0-97.0); Mean Platelet Volume 11.9 FL (9.5-12.2); Monocytes # (A) 0.82 X 10*3/uL (0.20-1.00); Monocytes % (A) 7.4 %; NRBC Per 100 WBC 0 X 10*3/uL (0.00-0.01); Neutrophils # (A) 8.24 X 10*3/uL (1.80-7.70); Neutrophils % (A) 74.7 %; Platelet Count 222 X 10*3/uL (140-440); RBC 3.26 X 10*6/uL (4.10-5.20); RDW 13.7 % (11.5-14.5); WBC 11.04 X 10*3/uL (4.50-10.00)
[2023-08-26 11:28] LABS: ALT 38 U/L (8-44); AST 23 U/L (13-35); Albumin 3.5 g/dL (3.8-4.9); Albumin/Globulin Ratio 1.59 Ratio (1.60-3.17); Alkaline Phosphatase 162 U/L (41-126); BUN/Creat Ratio 32.73 Ratio (12.00-20.00); Carbon Dioxide 24.8 mmol/L (21.6-31.8); Chloride 104 mmol/L (96-109); Globulin 2.2 g/dL (1.6-3.3); Glucose 123 mg/dL (70-110); Potassium 4.9 mmol/L (3.5-5.5); Sodium 141 mmol/L (135-145); Total Bilirubin 0.6 mg/dL (0.3-1.2); Total Protein 5.7 g/dL (6.2-8.2)
[2023-08-26] MEDS: guaiFENesin SYRUP 100MG/5ML 200 MG/10 ML CUP PO PRN (16:19)
[2023-08-26] MEDS: LORATADINE 10 MG TAB PO SCH (20:39)
[2023-08-27] MEDS: SPIRONOLACTONE 25 MG TAB PO SCH (09:47)
--- NOTE | 2023-08-27 16:30 | P.PN ---
Subjective Progress Note Date: 08/27/23 Hospital Course: Patient is a pleasant 83-year-old female with a past medical history of chronic atrial fibrillation on anticoagulation with Eliquis, hypertension, hyperlipidemia, and hypothyroidism. She presented to the emergency department with left lower extremity pain and swelling. Patient lives in [place] and is here in [place] for her son's . She reports upon getting into her izjnfphv-uc-wgi's car after her son's yesterday she bumped her leg on the door. Initially, patient reports it was sore but did not think much of it. She reports throughout the day and night the swelling and pain to her left lower extremity worsened. She denies any other pain or injuries and denies any other complaints at this time including headache, lightheadedness, dizziness, chest pain, palpitations, shortness of breath, or experiencing any numbness or focal weakness in her extremities. Patient does report difficulty bearing weight weight/ambulating on left lower extremity secondary to pain. She underwent full evaluation in the emergency department. Vital signs upon arrival show blood pressure 137/62, heart rate 89, respiratory rate 18, temp 97.6 F, and SpO2 of 97% on room air. Labs completed and reviewed. CBC showing mild leukocytosis with WBC count of 14.1 otherwise normal findings. Coagulation profile normal findings. BMP showing mild non-anion gap metabolic acidosis with chloride 109, bicarb 20, and anion gap of 8. Renal function slightly elevated with BUN of 36, creatinine 1.14, and GFR 45 unknown baseline as patient is from [place] and no previous labs are available for comparison. Lactic acid was 1.5. X-ray completed negative for acute fracture or dislocation revealing an approximately 12 x 4 cm ovoid opacity in the left lateral lower leg consistent with hematoma. Patient admitted under our services with consultation to orthopedic surgery team for evaluation. Patient reports receiving Tdap vaccination in 2022. Patient had acute blood loss anemia with hemoglobin dropping from 14.8 down to 11.2. CTA left lower extremity was completed to further evaluate hematoma and assess for any signs of active bleeding. CTA revealed large hematoma along the lateral aspect of the leg measuring 23 cm x 1.5 cm x 4 cm, however showing no active extravasation of contrast. Continued monitoring of hemoglobin decreasing down to 10.2. Patient was taken to OR by orthopedic surgery team for incision and drainage with application of wound VAC on 08/23/2023. Physical exam: Patient seen and fully evaluated at bedside this morning. She is postop day 3 status post I&D with application of wound VAC. Patient sitting up in chair again this morning and reports having a good morning and having a bowel movement. She was restarted on Eliquis this morning after being cleared by gen beard to resume She continues to anxiously await discharge to rehab, pt reports understanding that we are awaiting insurance authorization. Vital signs reviewed and stable. General: Nontoxic, no distress and appears stated age. Derm: Skin warm and dry, normal coloration for ethnicity. Head: Atraumatic, normocephalic and symmetric. Eyes: EOMs intact, no lid lag, and anicteric sclera Mouth: no lip lesions, mucus membranes moist Cardiovascular: Irregularly irregular with normal S1S2, no murmur, positive posterior tibial pulses bilaterally, and cap refill < 2 seconds. Lungs: Respirations even, regular, and unlabored on room air. Lungs CTA bilat erally, no rhonchi, no rales, no wheezing, and no accessory muscle usage. Abdominal: soft, nontender to palpation, no guarding, no appreciable organomegaly Ext: No gross muscle atrophy, no contractures. Movement and sensation remains intact. Dorsiflexion and plantarflexion remains intact. Patient with bilateral lower extremity edema and peripheral vascular dermatitis. Left lower extremity bruising, wound VAC in place left lateral lower extremity. Neuro: Speech clear, face symmetrical and CN II-XII grossly intact with no noted focal neuro deficits Psych: Alert and oriented to person, place, time, and situation. Appropriate and pleasant affect. Assessment and Plan of Care: Large left lower extremity hematoma status post I&D on 08/23/2023 with application of wound VAC Acute blood loss anemia, with episode of dizziness/lightheadedness upon standing. -Hemoglobin currently stable at 10.3. -Completed a 5-day course of empiric IV antibiotics with cefepime per recommendations of orthopedic surgery team. -Orthopedic surgery following, Patient is status post I&D with application of wound VAC on 08/23/2023. -Symptomatic care and pain management with Tylenol 650 mg every 6 hours as needed for mild pain, tramadol 50 mg as needed for moderate pain, and Dilaudid 0.5 mg IVP every 3 hours as needed for severe pain.. -Continue elevation of left lower extremity with neurovascular checks every 4 hours. -PT/OT following. Fall precautions in place. Case management arranging placement in SNF. -Patient has been medically optimized and is stable for discharge to rehab facility, awaiting insurance authorization. Transaminitis, improved Hypomagnesemia, resolved Chronic atrial fibrillation Hypertension Hyperlipidemia -Resumed Eliquis 5 mg twice daily this morning after clearance by orthopedic surgery team to resume. Patient to continue daily medication regimen with Cardizem 120 mg daily, lisinopril 20 mg twice daily, metoprolol 100 mg twice daily, pravastatin 40 mg nightly, and Aldactone 25 mg daily. Hypothyroidism. Continue daily medication regimen with levothyroxine 100 mcg daily. Data and imaging reviewed: Laboratory analysis reviewed. CBC showing mild leukocytosis with WBC count of 11.04 and stable anemia 10.3. BMP unremarkable. Blood glucose 1.1. Magnesium 2.0. Liver profile showing improvement and near resolution of transaminitis with AST of 23, ALT of 38, and alkaline phosphatase of 162. Vital signs reviewed. Blood pressure 109/68, heart rate 108, respiratory rate 16, temp 97.7 F, and SpO2 of 97% on room air. Patient has been medically optimized and is stable for discharge to rehab facility, awaiting insurance authorization. CODE STATUS: Full code DVT prophylaxis: Eliquis Anticipated discharge date: Patient medically cleared for discharge, discharge is delayed pending insurance authorization. Anticipated discharge place: [facility] Patient was seen independently by Nurse Practitioner. This document was prepared using [employer] dictation software. Please allow for errors in hoop machine operator while rare they do occur.. Phoenix Hartmann NP rendered care for this patient independently, reviewed the findings and plan as documented in the note above. I did not physically speak with or examine the patient on this date. Objective - Vital Signs Vital signs: Vital Signs Temp 98.0 F 08/27/23 02:00 Pulse 85 08/27/23 02:00 Resp 16 08/27/23 02:00 BP 142/74 08/27/23 02:00 Pulse Ox 98 08/27/23 02:00 FiO2 Intake & Output 08/26/23 08/27/23 08/27/23 18:59 06:59 18:59 Intake Total 236 Balance 236 Intake: Oral 236 Other: Voiding Method Toilet Toilet # Voids 3 2 # Bowel Movements 1 - Labs CBC & Chem 7: 08/26/23 05:45 08/26/23 05:45 Labs: Abnormal Lab Results - Last 24 Hours (Table) 08/26/23 08/26/23 Range/Units 05:45 05:45 WBC 11.04 H (4.50-10.00) X 10*3/uL RBC 3.26 L (4.10-5.20) X 10*6/uL Hgb 10.3 L (12.0-15.0) g/dL Hct 32.3 L (37.2-46.3) % MCV 99.1 H (80.0-97.0) FL MCHC 31.9 L (32.0-37.0) g/dL Immature Gran # 0.18 H (0.00-0.04) X 10*3/uL Neutrophils # 8.24 H (1.80-7.70) X 10*3/uL Anion Gap 12.20 H (4.00-12.00) mmol/L BUN 36.0 H (9.0-27.0) mg/dL Est GFR (CKD-EPI) 50 L (>=60) BUN/Creatinine Ratio 32.73 H (12.00-20.00) Ratio Glucose 123 H (70-110) mg/dL Alkaline Phosphatase 162 H (41-126) U/L Total Protein 5.7 L (6.2-8.2) g/dL Albumin 3.5 L (3.8-4.9) g/dL Albumin/Globulin Ratio 1.59 L (1.60-3.17) Ratio
--- NOTE | 2023-08-28 11:28 | P.PN ---
Subjective Progress Note Date: 08/28/23 Hospital Course: Patient is a pleasant 83-year-old female with a past medical history of chronic atrial fibrillation on anticoagulation with Eliquis, hypertension, hyperlipidemia, and hypothyroidism. She presented to the emergency department with left lower extremity pain and swelling. Patient lives in [place] and is here in [place] for her son's . She reports upon getting into her kxqmhfbh-px-cfu's car after her son's yesterday she bumped her leg on the door. Initially, patient reports it was sore but did not think much of it. She reports throughout the day and night the swelling and pain to her left lower extremity worsened. She denies any other pain or injuries and denies any other complaints at this time including headache, lightheadedness, dizziness, chest pain, palpitations, shortness of breath, or experiencing any numbness or focal weakness in her extremities. Patient does report difficulty bearing weight weight/ambulating on left lower extremity secondary to pain. She underwent full evaluation in the emergency department. Vital signs upon arrival show blood pressure 137/62, heart rate 89, respiratory rate 18, temp 97.6 F, and SpO2 of 97% on room air. Labs completed and reviewed. CBC showing mild leukocytosis with WBC count of 14.1 otherwise normal findings. Coagulation profile normal findings. BMP showing mild non-anion gap metabolic acidosis with chloride 109, bicarb 20, and anion gap of 8. Renal function slightly elevated with BUN of 36, creatinine 1.14, and GFR 45 unknown baseline as [place] is from [place] state and no previous labs are available for comparison. Lactic acid was 1.5. X-ray completed negative for acute fracture or dislocation revealing an approximately 12 x 4 cm ovoid opacity in the left lateral lower leg consistent with hematoma. Patient admitted under our services with consultation to orthopedic surgery team for evaluation. Patient reports receiving Tdap vaccination in 2022. Patient had acute blood loss anemia with hemoglobin dropping from 14.8 down to 11.2. CTA left lower extremity was completed to further evaluate hematoma and assess for any signs of active bleeding. CTA revealed large hematoma along the lateral aspect of the leg measuring 23 cm x 1.5 cm x 4 cm, however showing no active extravasation of contrast. Continued monitoring of hemoglobin decreasing down to 10.2. Patient was taken to OR by orthopedic surgery team for incision and drainage with application of wound VAC on 08/23/2023. Arrangements have been made for discharge to [facility] facility in [place]. Per case management patient has been accepted to facility but we continue to wait for insurance authorization. Physical exam: Patient seen and fully evaluated at bedside this morning. Wound VAC remains in place. Patient expresses discouragement this morning awaiting insurance authorization for discharge to rehab. Patient currently denies any other complaints or needs at this time. Discussed with shoe caser, at this time we are still awaiting insurance authorization. Vital signs reviewed and stable. General: Nontoxic, no distress and appears stated age. Derm: Skin warm and dry, normal coloration for ethnicity. Head: Atraumatic, normocephalic and symmetric. Eyes: EOMs intact, no lid lag, and anicteric sclera Mouth: no lip lesions, mucus membranes moist Cardiovascular: Irregularly irregular with normal S1S2, no murmur, positive posterior tibial pulses bilaterally, and cap refill < 2 seconds. Lungs: Respirations even, regular, and unlabored on room air. Lungs CTA bilate rally, no rhonchi, no rales, no wheezing, and no accessory muscle usage. Abdominal: soft, nontender to palpation, no guarding, no appreciable organomegaly Ext: No gross muscle atrophy, no contractures. Movement and sensation remains intact. Dorsiflexion and plantarflexion remains intact. Patient with bilateral lower extremity edema and peripheral vascular dermatitis. Left lower extremity bruising, wound VAC in place left lateral lower extremity. Neuro: Speech clear, face symmetrical and CN II-XII grossly intact with no noted focal neuro deficits Psych: Alert and oriented to person, place, time, and situation. Appropriate and pleasant affect. Assessment and Plan of Care: Large left lower extremity hematoma status post I&D on 08/23/2023 with application of wound VAC Acute blood loss anemia, with episode of dizziness/lightheadedness upon standing. -Hemoglobin currently stable at 10.3. -Completed a 5-day course of empiric IV antibiotics with cefepime per recommendations of orthopedic surgery team. -Orthopedic surgery and took patient for I&D with application of wound VAC on 08/23/2023. -Continue symptomatic care and pain management with Tylenol 650 mg every 6 hours as needed for mild pain, tramadol 50 mg as needed for moderate pain, and Dilaudid 0.5 mg IVP every 3 hours as needed for severe pain.. -Continue elevation of left lower extremity -PT/OT following. Fall precautions in place. Case management arranging placement in SNF. -Patient has been medically optimized and is stable for discharge to rehab facility, awaiting insurance authorization. Transaminitis, improved Hypomagnesemia, resolved Chronic atrial fibrillation Hypertension Hyperlipidemia -Continue Eliquis 5 mg twice daily, Cardizem 120 mg daily, lisinopril 20 mg twice daily, metoprolol 100 mg twice daily, pravastatin 40 mg nightly, and Aldactone 25 mg daily. Hypothyroidism. Continue daily medication regimen with levothyroxine 100 mcg daily. Data and imaging reviewed: Vital signs reviewed. Blood pressure 102/64, heart rate 107, respiratory rate 16, temp 98.0 F, and SpO2 of 96% on room air. Patient has been medically optimized and is stable for discharge to rehab facility, awaiting insurance authorization. CODE STATUS: Full code DVT prophylaxis: Eliquis Anticipated discharge date: Patient medically cleared for discharge, discharge is delayed pending insurance authorization. Anticipated discharge place: SNF Patient was seen independently by Nurse Practitioner. This document was prepared using [employer] dictation software. Please allow for errors in security systems installer while rare they do occur.. Phoenix Hartmann NP rendered care for this patient independently, reviewed the findings and plan as documented in the note above. I did not physically speak with or examine the patient on this date. Objective - Vital Signs Vital signs: Vital Signs Temp 98.2 F 08/28/23 02:11 Pulse 81 08/28/23 02:11 Resp 15 08/28/23 02:11 BP 112/60 08/28/23 02:11 Pulse Ox 98 08/28/23 02:11 FiO2 Intake & Output 08/27/23 08/28/23 08/28/23 18:59 06:59 18:59 Intake Total 0 240 Output Total 475 Balance 0 -235 Intake: Oral 0 240 Output: Drainage 475 Left Calf 475 Other: Voiding Method Toilet # Voids 2 2 - Labs CBC & Chem 7: 08/26/23 05:45 08/26/23 05:45
[2023-08-28] MEDS: HYDROcodone/APAP 7.5-325MG 1 EACH TAB PO PRN (22:50)
--- NOTE | 2023-08-29 12:12 | P.CONS ---
History of Present Illness - Reason for Consult Consult date: 08/29/23 wound care - History of Present Illness This is a 83-year-old patient with past medical history significant for atrial fibrillation, hyperlipidemia, hypertension, thyroid disorder, obesity. Patient is a lifelong non-smoker and denies diabetes. She is being seen on [address]. for nonhealing ulceration to the left lateral lower extremity. Patient states that she had bumped her leg resulting in a large hematoma that was evacuated by orthopedics and a negative pressure wound VAC was placed to the site. The ulceration measures approximately 23 x 5 x 5 cm with muscle exposed without necrosis. Patient lives in [place] and would like to go home. She is very overwhelmed due to the circumstances that brought her to [place] related to the of her son. Patient is unable to stay for continued care in [place] she needs to go home to manage her house in [place]. Review Of Systems: Constitutional: No fever, no chills, no night sweats. No weight change. No weakness, fatigue or lethargy. No daytime sleepiness. Integumentary:reports wounds, no lesions. No rash or pruritus. No unusual bruising. No change in hair or nails. Physical exam: General Appearance: Alert, cooperative, no distress, appears stated age. Skin: See HPI all other Skin color, texture, tugor normal, no rashes or lesions. Neurologic: Alert oriented x3 Assessment: 1. Nonhealing ulceration with muscle involvement of left lateral calf Plan: 1.If patient is going home apply the outpatient negative pressure wound VAC before discharge. Negative pressure wound bed 125 mmHg continuous pressure to the left lateral calf. Change Sunday. If patient is going to rehab may apply absorptive silver, saline moistened gauze, dry gauze, rolled gauze and secure with paper tape apply the wound VAC once it is available. Thank you for the consultation any questions please contact the wound care center. DNP note has been reviewed and discussed with Dr. Soto and the impression and plan of care has been directed as dictated. Past Medical History Past Medical History: Atrial Fibrillation, Hyperlipidemia, Hypertension, Thyroid Disorder History of Any Multi-Drug Resistant Organisms: None Reported Past Surgical History: Cholecystectomy, Joint Replacement Additional Past Surgical History / Comment(s): right knee replacement Past Psychological History: No Psychological Hx Reported Smoking Status: Never smoker Past Alcohol Use History: None Reported Past Drug Use History: None Reported Medications and Allergies Home Medications Medication Instructions Recorded Confirmed Type Apixaban [Eliquis] 5 mg PO BID 08/21/23 08/21/23 History Clotrimazole/Betameth Cream 1 applic TOPICAL BID PRN 08/21/23 08/21/23 History [Lotrisone] Levothyroxine Sodium [Levoxyl] 100 mcg PO HS 08/21/23 08/21/23 History Metoprolol Tartrate [Lopressor] 100 mg PO BID 08/21/23 08/21/23 History Pravastatin Sodium [Pravachol] 40 mg PO HS 08/21/23 08/21/23 History Spironolactone 25 mg PO DAILY PRN 08/21/23 08/21/23 History dilTIAZem HCL [dilTIAZem HCL 24Hr 120 mg PO DAILY 08/21/23 08/21/23 History ER (Xr)] lisinopriL [Zestril] 20 mg PO BID 08/21/23 08/21/23 History traMADol HCL 50 mg PO DAILY PRN 08/21/23 08/21/23 History Allergies Allergy/AdvReac Type Severity Reaction Status Date / Time amoxicillin Allergy Itching Verified 08/23/23 10:20 morphine Allergy Itching Verified 08/23/23 10:20 Physical Exam Vitals: Vital Signs Temp Pulse Resp BP Pulse Ox 08/29/23 08:00 98.0 F 87 16 145/70 99 08/29/23 02:18 97.6 F 90 17 129/74 99 08/28/23 19:04 98.2 F 99 15 109/54 94 L 08/28/23 14:00 98.4 F 82 16 101/57 97 Intake and Output 08/28/23 08/29/23 08/29/23 22:59 06:59 14:59 Intake Total 240 Balance 240 Intake: Oral 240 Other: Voiding Method Toilet # Voids 2 1 Results CBC & Chem 7: 08/26/23 05:45 08/26/23 05:45 Assessment and Plan (1) 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
--- NOTE | 2023-08-29 13:59 | P.PN ---
Subjective Progress Note Date: 08/29/23 83-year-old F with PMH chronic AFib on anticoagulation with Eliquis, hypertension, hyperlipidemia, and hypothyroidism. She presented to the emergency department with left lower extremity pain and swelling. She reports upon getting into her grbjvjba-nx-pez's car after her son's yesterday she bumped her leg on the door. She reports throughout the day and night the swelling and pain to her left lower extremity worsened. She underwent full evaluation in the emergency department. Vital signs upon arrival show blood pressure 137/62, heart rate 89, respiratory rate 18, temp 97.6 F, and SpO2 of 97% on room air. CBC showing mild leukocytosis with WBC count of 14.1 otherwise normal findings. Coagulation profile normal findings. BMP showing mild non-anion gap metabolic acidosis with chloride 109, bicarb 20, and anion gap of 8. Renal function slightly elevated with BUN of 36, creatinine 1.14, and GFR 45 unknown baseline. Lactic acid was 1.5. X-ray completed negative for acute fracture or dislocation revealing an approximately 12 x 4 cm ovoid opacity in the left lateral lower leg consistent with hematoma. Patient admitted under our services with consultation to orthopedic surgery team for evaluation. Patient reports receiving Tdap vaccination in 2022. Patient had acute blood loss anemia with hemoglobin dropping from 14.8 down to 11.2 down to 10.2. CTA revealed large hematoma along the lateral aspect of the leg measuring 23 cm x 1.5 cm x 4 cm, however showing no active extravasation of contrast. Patient was taken to OR by orthopedic surgery team for incision and drainage with application of wound VAC on 08/23/2023. 08/28 Patient was seen and examined. Patient continues to have great difficulty with ambulating while using the walker and carrying a large wound vac. Furthermore, she does have a large lateral wound on her LLE and requires help for wound care. She lives at home alone and has stairs to get in her house. I believe she would benefit from SNF for OT and wound care. General: non toxic, no distress, appears at stated age Derm: warm, dry Head: atraumatic, normocephalic, symmetric Eyes: EOMI, no lid lag, anicteric sclera Mouth: no lip lesion, mucus membranes moist Cardiovascular: S1S2 reg, no murmur Lungs: CTA bilateral, no rhonchi, no rales , no accessory muscle use Abdominal: soft, nontender to palpation, no guarding, no appreciable organomegaly Ext: no gross muscle atrophy, bilateral lower extremity edema and peripheral vascular dermatitis, LLE bruising with wound VAC applied, no contractures Neuro: no focal neuro deficits Psych: Alert, oriented, appropriate affect Based on my assessment of this patient, this patient meets a moderate complexity level of care. Patient has a new diagnosis of large LLE hematoma status post I&D and wound vac with uncertain prognosis. Large left lower extremity hematoma status post I&D on 08/23/2023 with application of wound VAC Acute blood loss anemia, with episode of dizziness/lightheadedness upon standing. Transaminitis, improved Hypomagnesemia, resolved Chronic atrial fibrillation Hypertension Hyperlipidemia Hypothyroidism PT and OT on board. Peer-peer done, denied SNF, fast appeal sent. Continue wound vac with wound care. Fall precautions. Monitor hemoglobin while on Eliquis. CODE STATUS: FULL CODE DVT Prophylaxis: Eliquis GI Prophylaxis: Pepcid Designated medical POA if patient is not able to make medical decisions for themselves: I have reviewed the following marketing operations consultant notes: Wound care. I have reviewed the results of the following tests: I have ordered the following tests: I have discussed the care of this patient with the following independent histori an: RN and case management regarding discharge planning. I have independently interpreted the following test below: I have discussed the management of this patient with the following physician: This patient has a moderate risk of morbidity due to the following reasons: Management of left lower extremity hematoma status post I&D on 08/23/2023 with application of wound VAC that is limited by social determinants of health. Objective - Vital Signs Vital signs: Vital Signs Temp 98.0 F 08/29/23 08:00 Pulse 87 08/29/23 08:00 Resp 16 08/29/23 08:00 BP 145/70 08/29/23 08:00 Pulse Ox 99 08/29/23 08:00 FiO2 Intake & Output 08/28/23 08/29/23 08/29/23 18:59 06:59 18:59 Intake Total 358 Balance 358 Intake: Oral 358 Other: Voiding Method Toilet # Voids 2 1 - Labs CBC & Chem 7: 08/26/23 05:45 08/26/23 05:45
[2023-08-29 14:35] VITALS: BMI 43.2
--- NOTE | 2023-08-30 11:30 | P.PN ---
Subjective Progress Note Date: 08/30/23 83-year-old F with PMH chronic AFib on anticoagulation with Eliquis, hypertension, hyperlipidemia, and hypothyroidism. She presented to the emergency department with left lower extremity pain and swelling. She reports upon getting into her rjdtdikq-pw-mgv's car after her son's yesterday she bumped her leg on the door. She reports throughout the day and night the swelling and pain to her left lower extremity worsened. She underwent full evaluation in the emergency department. Vital signs upon arrival show blood pressure 137/62, heart rate 89, respiratory rate 18, temp 97.6 F, and SpO2 of 97% on room air. CBC showing mild leukocytosis with WBC count of 14.1 otherwise normal findings. Coagulation profile normal findings. BMP showing mild non-anion gap metabolic acidosis with chloride 109, bicarb 20, and anion gap of 8. Renal function slightly elevated with BUN of 36, creatinine 1.14, and GFR 45 unknown baseline. Lactic acid was 1.5. X-ray completed negative for acute fracture or dislocation revealing an approximately 12 x 4 cm ovoid opacity in the left lateral lower leg consistent with hematoma. Patient admitted under our services with consultation to orthopedic surgery team for evaluation. Patient reports receiving Tdap vaccination in 2022. Patient had acute blood loss anemia with hemoglobin dropping from 14.8 down to 11.2 down to 10.2. CTA revealed large hematoma along the lateral aspect of the leg measuring 23 cm x 1.5 cm x 4 cm, however showing no active extravasation of contrast. Patient was taken to OR by orthopedic surgery team for incision and drainage with application of wound VAC on 08/23/2023. 08/28 Patient was seen and examined. Patient continues to have great difficulty with ambulating while using the walker and carrying a large wound vac. Furthermore, she does have a large lateral wound on her LLE and requires help for wound care. She lives at home alone and has stairs to get in her house. I believe she would benefit from SNF for OT and wound care. 08/29 Patient was seen and examined. Discussed with case management, fast appeal is pending. Insurance auth sent for wound vac incase her fast appear gets denied. General: non toxic, no distress, appears at stated age Derm: warm, dry Head: atraumatic, normocephalic, symmetric Eyes: EOMI, no lid lag, anicteric sclera Mouth: no lip lesion, mucus membranes moist Cardiovascular: S1S2 reg, no murmur Lungs: CTA bilateral, no rhonchi, no rales , no accessory muscle use Ext: no gross muscle atrophy, bilateral lower extremity edema and peripheral vascular dermatitis, LLE bruising with wound VAC applied, no contractures Neuro: no focal neuro deficits Psych: Alert, oriented, appropriate affect Based on my assessment of this patient, this patient meets a moderate complexity level of care. Patient has a new diagnosis of large LLE hematoma status post I&D and wound vac with uncertain prognosis. Large left lower extremity hematoma status post I&D on 08/23/2023 with application of wound VAC Acute blood loss anemia, with episode of dizziness/lightheadedness upon st anding. Transaminitis, improved Hypomagnesemia, resolved Chronic atrial fibrillation Hypertension Hyperlipidemia Hypothyroidism PT and OT on board. Continue wound vac with wound care. Fall precautions. Minimal output into wound VAC. Monitor hemoglobin while on Eliquis. CODE STATUS: FULL CODE DVT Prophylaxis: Eliquis GI Prophylaxis: Pepcid Designated medical POA if patient is not able to make medical decisions for themselves: I have reviewed the following employment consultant notes: I have reviewed the results of the following tests: I have ordered the following tests: I have discussed the care of this patient with the following independent historian: Case management regarding discharge planning. I have independently interpreted the following test below: I have discussed the management of this patient with the following physician: This patient has a moderate risk of morbidity due to the following reasons: Management of left lower extremity hematoma status post I&D on 08/23/2023 with a pplication of wound VAC that is limited by social determinants of health. Objective - Vital Signs Vital signs: Vital Signs Temp 98 F 08/30/23 07:40 Pulse 98 08/30/23 07:40 Resp 19 08/30/23 07:40 BP 108/62 08/30/23 07:40 Pulse Ox 100 08/30/23 10:12 FiO2 21 08/30/23 10:12 Intake & Output 08/29/23 08/30/23 08/30/23 18:59 06:59 18:59 Weight 117.934 kg Other: Voiding Method Toilet # Voids 1 2 - Labs CBC & Chem 7: 08/26/23 05:45 08/26/23 05:45
[2023-08-30] MEDS: BENZOCAINE/MENTHOL LOZENG 1 EACH LOZENGE MUCOUS MEM PRN (22:23)
[2023-08-31 07:58] VITALS: TEMP 98.2
--- NOTE | 2023-08-31 10:39 | P.PN ---
Subjective Progress Note Date: 08/31/23 83-year-old F with PMH chronic AFib on anticoagulation with Eliquis, hypertension, hyperlipidemia, and hypothyroidism. She presented to the emergency department with left lower extremity pain and swelling. She reports upon getting into her yhalwsmo-ky-tav's car after her son's yesterday she bumped her leg on the door. She reports throughout the day and night the swelling and pain to her left lower extremity worsened. She underwent full evaluation in the emergency department. Vital signs upon arrival show blood pressure 137/62, heart rate 89, respiratory rate 18, temp 97.6 F, and SpO2 of 97% on room air. CBC showing mild leukocytosis with WBC count of 14.1 otherwise normal findings. Coagulation profile normal findings. BMP showing mild non-anion gap metabolic acidosis with chloride 109, bicarb 20, and anion gap of 8. Renal function slightly elevated with BUN of 36, creatinine 1.14, and GFR 45 unknown baseline. Lactic acid was 1.5. X-ray completed negative for acute fracture or dislocation revealing an approximately 12 x 4 cm ovoid opacity in the left lateral lower leg consistent with hematoma. Patient admitted under our services with consultation to orthopedic surgery team for evaluation. Patient reports receiving Tdap vaccination in 2022. Patient had acute blood loss anemia with hemoglobin dropping from 14.8 down to 11.2 down to 10.2. CTA revealed large hematoma along the lateral aspect of the leg measuring 23 cm x 1.5 cm x 4 cm, however showing no active extravasation of contrast. Patient was taken to OR by orthopedic surgery team for incision and drainage with application of wound VAC on 08/23/2023. 08/28 Patient was seen and examined. Patient continues to have great difficulty with ambulating while using the walker and carrying a large wound vac. Furthermore, she does have a large lateral wound on her LLE and requires help for wound care. She lives at home alone and has stairs to get in her house. I believe she would benefit from SNF for OT and wound care. 08/29 Patient was seen and examined. Discussed with case management, fast appeal is pending. Insurance auth sent for wound vac incase her fast appear gets denied. 08/30 Patient was seen and examined. Frustrated at the length of hospital stay. Fast appear is pending. Home health is pending. Discussed with case management. General: non toxic, no distress, appears at stated age Derm: warm, dry Head: atraumatic, normocephalic, symmetric Eyes: EOMI, no lid lag, anicteric sclera Mouth: no lip lesion, mucus membranes moist Cardiovascular: S1S2 reg, no murmur Lungs: CTA bilateral, no rhonchi, no rales , no accessory muscle use Ext: no gross muscle atrophy, bilateral lower extremity edema and peripheral vascular dermatitis, LLE bruising with wound VAC applied, no contractures Neuro: no focal neuro deficits Psych: Alert, oriented, appropriate affect Based on my assessment of this patient, this patient meets a moderate complexity level of care. Patient has a new diagnosis of large LLE hematoma status post I&D and wound vac with uncertain prognosis. Large left lower extremity hematoma status post I&D on 08/23/2023 with application of wound VAC Acute blood loss anemia, with episode of dizziness/lightheadedness upon standing. Transaminitis, improved Hypomagnesemia, resolved Chronic atrial fibrillation Hypertension Hyperlipidemia Hypothyroidism PT and OT on board. Continue wound vac with wound care. Fall precautions. Minimal output into wound VAC. Monitor hemoglobin while on Eliquis. CODE STATUS: FULL CODE DVT Prophylaxis: Eliquis GI Prophylaxis: Pepcid Designated medical POA if patient is not able to make medical decisions for themselves: I have reviewed the following political consultant notes: I have reviewed the results of the following tests: I have ordered the following tests: I have discussed the care of this patient with the following independent historian: Case management and RN regarding discharge planning. I have independently interpreted the following test below: I have discussed the management of this patient with the following physician: This patient has a moderate risk of morbidity due to the following reasons: Management of left lower extremity hematoma status post I&D on 08/23/2023 with application of wound VAC that is limited by social determinants of health. Objective - Vital Signs Vital signs: Vital Signs Temp 98.2 F 08/31/23 07:23 Pulse 90 08/31/23 07:23 Resp 17 08/31/23 07:23 BP 118/65 08/31/23 07:23 Pulse Ox 99 08/31/23 07:23 FiO2 21 08/30/23 10:12 Intake & Output 08/30/23 08/31/23 08/31/23 18:59 06:59 18:59 Intake Total 236 Balance 236 Intake: Oral 236 Other: Voiding Method Toilet # Voids 4 2 - Labs CBC & Chem 7: 08/26/23 05:45 08/26/23 05:45
--- NOTE | 2023-08-31 14:12 | P.DS ---
Providers Date of admission: 08/22/23 11:38 Expected date of discharge: 08/31/23 Attending physician: Alida Liz DO Consults: 08/21/23 08:03 Consult Physician Routine Consulting Provider: Jayjay Chris Consult Reason/Comments: Left leg hematoma, intractable pain Do you want consulting provider notified?: Yes Primary care physician: Physician Nonstaff Hospital Course: 83-year-old F with PMH chronic AFib on anticoagulation with Eliquis, hypertension, hyperlipidemia, and hypothyroidism. She presented to the emergency department with left lower extremity pain and swelling. She reports upon getting into her [id number] car after her son's yesterday she bumped her leg on the door. She reports throughout the day and night the swelling and pain to her left lower extremity worsened. She underwent full evaluation in the emergency department. Vital signs upon arrival show blood pressure 137/62, heart rate 89, respiratory rate 18, temp 97.6 F, and SpO2 of 97% on room air. CBC showing mild leukocytosis with WBC count of 14.1 otherwise normal findings. Coagulation profile normal findings. BMP showing mild non-anion gap metabolic acidosis with chloride 109, bicarb 20, and anion gap of 8. Renal function slightly elevated with BUN of 36, creatinine 1.14, and GFR 45 unknown baseline. Lactic acid was 1.5. X-ray completed negative for acute fracture or dislocation revealing an approximately 12 x 4 cm ovoid opacity in the left lateral lower leg consistent with hematoma. Patient admitted under our services with consultation to orthopedic surgery team for evaluation. Patient reports receiving Tdap vaccination in 2022. Patient had acute blood loss anemia with hemoglobin dropping from 14.8 down to 11.2 down to 10.2. CTA revealed large hematoma along the lateral aspect of the leg measuring 23 cm x 1.5 cm x 4 cm, however showing no active extravasation of contrast. Patient was taken to OR by orthopedic surgery team for incision and drainage with application of wound VAC on 08/23/2023. 08/28 Patient was seen and examined. Patient continues to have great difficulty with ambulating while using the walker and carrying a large wound vac. Furthermore, she does have a large lateral wound on her LLE and requires help for wound care. She lives at home alone and has stairs to get in her house. I believe she would benefit from SNF for OT and wound care. 08/29 Patient was seen and examined. Discussed with case management, fast appeal is pending. Insurance auth sent for wound vac incase her fast appear gets denied. 08/30 Patient was seen and examined. Frustrated at the length of hospital stay. Fast appear is pending. Home health is pending. Discussed with case management. Fast appeal approved. Plans for discharge on 08/30. General: non toxic, no distress, appears at stated age Derm: warm, dry Head: atraumatic, normocephalic, symmetric Eyes: EOMI, no lid lag, anicteric sclera Mouth: no lip lesion, mucus membranes moist Cardiovascular: S1S2 reg, no murmur Lungs: CTA bilateral, no rhonchi, no rales , no accessory muscle use Ext: no gross muscle atrophy, bilateral lower extremity edema and peripheral vascular dermatitis, LLE bruising with wound VAC applied, no contractures Neuro: no focal neuro deficits Psych: Alert, oriented, appropriate affect Discharge Diagnosis: Large left lower extremity hematoma status post I&D on 08/23/2023 with application of wound VAC Acute blood loss anemia, with episode of dizziness/lightheadedness upon standing. Transaminitis, improved Hypomagnesemia, resolved Chronic atrial fibrillation Hypertension Hyperlipidemia Hypothyroidism This complex discharge took 35 minutes to complete. Patient Condition at Discharge: Stable Plan - Discharge Summary New Discharge Prescriptions: New Docusate [Colace] 100 mg PO DAILY PRN cap PRN Reason: Constipation HYDROcodone/APAP 7.5-325MG [[place] 7.5-325] 1 each PO Q4H PRN #10 tab PRN Reason: Pain Scale 1 To 5 Famotidine [Pepcid] 20 mg PO DAILY tab Acetaminophen Tab [Tylenol] 650 mg PO Q6HR PRN tab PRN Reason: Mild Pain Or Fever > 100.5 Continue lisinopriL [Zestril] 20 mg PO BID Levothyroxine Sodium [Levoxyl] 100 mcg PO HS Spironolactone 25 mg PO DAILY PRN PRN Reason: Edema Pravastatin Sodium [Pravachol] 40 mg PO HS dilTIAZem HCL [dilTIAZem HCL 24Hr ER (Xr)] 120 mg PO DAILY Metoprolol Tartrate [Lopressor] 100 mg PO BID Clotrimazole/Betameth Cream [Lotrisone] 1 applic TOPICAL BID PRN PRN Reason: GROIN IRRITATION Apixaban [Eliquis] 5 mg PO BID traMADol HCL 50 mg PO DAILY PRN #3 tab PRN Reason: Pain Scale 7 To 10 Discharge Medication List Apixaban [Eliquis] 5 mg PO BID 08/21/23 [History] Clotrimazole/Betameth Cream [Lotrisone] 1 applic TOPICAL BID PRN 08/21/23 [History] Levothyroxine Sodium [Levoxyl] 100 mcg PO HS 08/21/23 [History] Metoprolol Tartrate [Lopressor] 100 mg PO BID 08/21/23 [History] Pravastatin Sodium [Pravachol] 40 mg PO HS 08/21/23 [History] Spironolactone 25 mg PO DAILY PRN 08/21/23 [History] dilTIAZem HCL [dilTIAZem HCL 24Hr ER (Xr)] 120 mg PO DAILY 08/21/23 [History] lisinopriL [Zestril] 20 mg PO BID 08/21/23 [History] Acetaminophen Tab [Tylenol] 650 mg PO Q6HR PRN tab 08/31/23 [Rx] Docusate [Colace] 100 mg PO DAILY PRN cap 08/31/23 [Rx] Famotidine [Pepcid] 20 mg PO DAILY tab 08/31/23 [Rx] HYDROcodone/APAP 7.5-325MG [[place] 7.5-325] 1 each PO Q4H PRN #10 tab 08/31/23 [Rx] traMADol HCL 50 mg PO DAILY PRN #3 tab 08/31/23 [Rx] Follow up Appointment(s)/Referral(s): Nonstaff,Physician [Primary Care Provider] - 1-2 days Jayjay Chris MD [STAFF PHYSICIAN] - 1 Week Activity/Diet/Wound Care/Special Instructions: Wound vac: [phone] - call if you have questions regarding your home wound vac wound vac management keep wound clean and dry elevate lower extremity Sutures out at POD #12 Discharge Disposition: TRANSFER TO SNF/ECF
[2023-08-31 14:21] VITALS: BP 91/58; PULSE 81; RESP 18
== END 2023-08-31 17:14 | DRG 605 ==
LOC: EC 04:02 → 6NMEDSUR 08:12 → 1SOBS 14:26 → OBSVTOIN 08-22 11:38 → 6NMEDSUR 08-23 10:19
PROVIDERS: ADMIT Internal Medicine; ATTEND Internal Medicine
PROC: 0JCP3ZZ Extirpation of Matter from Left Lower Leg Subcutaneous Tissue and Fascia, Percutaneous Approach (ICD-10-PCS; principal; 2023-08-23 11:40)
DX: S80.12XA Contusion of left lower leg, initial encounter (principal); L97.225 Non-pressure chronic ulcer of left calf with muscle involvement without evidence of necrosis; L03.116 Cellulitis of left lower limb; L03.115 Cellulitis of right lower limb; I48.20 Chronic atrial fibrillation, unspecified; D62 Acute posthemorrhagic anemia; E87.20 Acidosis, unspecified; Z68.41 Body mass index [BMI] 40.0-44.9, adult; E66.9 Obesity, unspecified; W26.8XXA Contact with other sharp object(s), not elsewhere classified, initial encounter; R26.2 Difficulty in walking, not elsewhere classified; R74.01 Elevation of levels of liver transaminase levels; D72.829 Elevated white blood cell count, unspecified; Z96.651 Presence of right artificial knee joint; E03.9 Hypothyroidism, unspecified; E78.5 Hyperlipidemia, unspecified; I10 Essential (primary) hypertension; E83.42 Hypomagnesemia; Z88.5 Allergy status to narcotic agent; Z88.0 Allergy status to penicillin; Z79.899 Other long term (current) drug therapy; Z79.890 Hormone replacement therapy; Z79.01 Long term (current) use of anticoagulants; Z63.4 Disappearance and death of family member
CPT/HCPCS: 36415; 80048; 80053; 83605; 83735; 85025; 85027; 85610; 85730; 94760; 96374; 96376; 99285